=== PATIENT | female | born 1965 | race Hispanic/Latino ===

== ENCOUNTER → 2017-10-03 | Outpatient (CLI) | payer OTHER ==
[~2017-10-03] MED LIST: LISI10TA7 PO
[2017-10-03 13:15] LABS: APPEARANCE,URINE Clear (CLEAR); BILIRUBIN,URINE Negative (NEGATIVE); COLOR,URINE Yellow (YELLOW); GLUCOSE, URINE (UA) Negative (NEGATIVE); KETONES,URINE Negative (NEGATIVE); LEUKOCYTE ESTERASE ,URINE Moderate (NEGATIVE); NITRATE,URINE Negative (NEGATIVE); OCCULT BLOOD,URINE Negative (NEGATIVE); PROTEIN,URINE Negative (NEGATIVE)
[2017-10-03 13:21] LABS: BACTERIA,URINE Few /HPF (None Seen); SQUAMOUS EPITHELIAL CELL,UR Rare /HPF (0-2)
== END | disposition home or self-care (01) ==
LOC: LAB 12:53
PROVIDERS: ATTEND Family Medicine
DX: N39.0 Urinary tract infection, site not specified (principal)
CPT/HCPCS: 81001; 87088

== ENCOUNTER → 2017-10-13 | Outpatient (CLI) | payer OTHER | END | disposition home or self-care (01) | LOC: RAH 09:42 | PROVIDERS: ATTEND Family Medicine | DX: N60.02 Solitary cyst of left breast (principal); N60.01 Solitary cyst of right breast; R92.8 Other abnormal and inconclusive findings on diagnostic imaging of breast | CPT/HCPCS: 76641; 77066 ==

== ENCOUNTER → 2018-07-12 | Outpatient (CLI) | payer OTHER ==
[2018-07-12 10:00] LABS: BASOPHILS % (AUTO) 0.7 % (0.0-5.0); EOSINOPHILS % (AUTO) 0.9 % (0.0-8.0); HEMATOCRIT 45.5 % (36-48); LYMPHOCYTES % (AUTO) 29.4 % (21.0-51.0); MEAN CORPUSCULAR HEMOGLOBIN 31.7 pg (27.0-33.0); MEAN CORPUSCULAR HGB CONC 34.6 g/dL (32.0-36.0); MEAN CORPUSCULAR VOLUME 91.7 fL (79-99); MONOCYTES % (AUTO) 4.9 % (3.0-13.0); NEUTROPHILS % (AUTO) 64.1 % (40.0-77.0); NUCLEATED RED BLOOD CELLS 0.1 % (0.0-0.19); PLATELET COUNT (AUTO) 118 K/uL (130-400); RED BLOOD CELL COUNT(AUTO) 4.97 MIL/uL (4.00-5.50); RED CELL DISTRIBUTION WIDTH 13.5 % (11.0-15.5); WHITE BLOOD COUNT (AUTO) 6.7 K/uL (4.8-10.8)
[2018-07-12 10:09] LABS: HEMOGLOBIN A1C 5.8 % (4.0-6.0)
[2018-07-12 10:19] LABS: ALBUMIN 3.9 g/dL (3.5-5.0); BILIRUBIN,TOTAL 1.3 mg/dL (0.2-1.0); CREATININE 0.8 mg/dL (0.5-1.5); POTASSIUM 4.2 mmol/L (3.5-5.1); THYROID STIMULATING HORMONE 2.38 uIU/mL (0.36-3.74); TOTAL PROTEIN, SERUM 7.2 g/dL (6.0-8.3)
== END | disposition home or self-care (01) ==
LOC: LAB 09:15
PROVIDERS: ATTEND Family Medicine
DX: I10 Essential (primary) hypertension (principal)
CPT/HCPCS: 36415; 80053; 80061; 83036; 84443; 85025

== ENCOUNTER → 2018-09-12 | Outpatient (CLI) | payer OTHER | END | disposition home or self-care (01) | LOC: RAH 11:19 | PROVIDERS: ATTEND Family Medicine | DX: R05 Cough (principal) | CPT/HCPCS: 71046 ==

== ENCOUNTER → 2018-10-17 | Outpatient (CLI) | payer OTHER | END | disposition home or self-care (01) | LOC: RAH 07:39 | PROVIDERS: ATTEND Family Medicine | DX: R92.2 Inconclusive mammogram (principal) | CPT/HCPCS: 77066 ==

== ENCOUNTER → 2018-10-20 | Outpatient (CLI) | payer OTHER | END | disposition home or self-care (01) | LOC: RAH 07:24 | PROVIDERS: ATTEND Family Medicine | DX: K76.0 Fatty (change of) liver, not elsewhere classified (principal); R16.1 Splenomegaly, not elsewhere classified | CPT/HCPCS: 36415; 76700; 83013 ==

== ENCOUNTER 2018-11-07 21:27 | Emergency (ER) | payer OTHER ==
[2018-11-07 22:07] LABS: BASOPHILS % (AUTO) 0.6 % (0.0-5.0); HEMATOCRIT 44.2 % (36-48); LYMPHOCYTES % (AUTO) 30.8 % (21.0-51.0); MEAN CORPUSCULAR HEMOGLOBIN 31.2 pg (27.0-33.0); MEAN CORPUSCULAR HGB CONC 34.3 g/dL (32.0-36.0); MONOCYTES % (AUTO) 5.3 % (3.0-13.0); NEUTROPHILS % (AUTO) 62.3 % (40.0-77.0); PLATELET COUNT (AUTO) 138 K/uL (130-400); RED BLOOD CELL COUNT(AUTO) 4.85 MIL/uL (4.00-5.50); RED CELL DISTRIBUTION WIDTH 13.2 % (11.0-15.5); WHITE BLOOD COUNT (AUTO) 7.4 K/uL (4.8-10.8)
[2018-11-07 22:19] LABS: APPEARANCE,URINE Clear (CLEAR); BILIRUBIN,URINE Negative (NEGATIVE); COLOR,URINE Yellow (YELLOW); GLUCOSE, URINE (UA) Negative (NEGATIVE); KETONES,URINE Negative (NEGATIVE); LEUKOCYTE ESTERASE ,URINE Trace (NEGATIVE); NITRATE,URINE Negative (NEGATIVE); OCCULT BLOOD,URINE Negative (NEGATIVE); PROTEIN,URINE Negative (NEGATIVE)
[2018-11-07 22:20] LABS: CREATININE 0.9 mg/dL (0.5-1.5); POTASSIUM 3.7 mmol/L (3.5-5.1)
[2018-11-07 22:25] LABS: BILIRUBIN,TOTAL 0.8 mg/dL (0.2-1.0); TOTAL PROTEIN, SERUM 7.2 g/dL (6.0-8.3)
[2018-11-07 22:30] LABS: BACTERIA,URINE Few /HPF (None Seen); RBC,URINE 0-1 /HPF (0-1); SQUAMOUS EPITHELIAL CELL,UR Few /HPF (0-2)
[2018-11-07] MEDS ORDERED: KETOROLAC TROMETHAMINE 30MG/ML ONE (23:24)
[2018-11-07] MEDS ORDERED: ONDANSETRON HCL 4 MG/2 ML VIAL ONE (23:24)
== END 2018-11-07 23:53 | disposition home or self-care (01) ==
LOC: EDH 21:27
DX: R10.11 Right upper quadrant pain (principal); R10.13 Epigastric pain; I10 Essential (primary) hypertension; Z90.710 Acquired absence of both cervix and uterus
CPT/HCPCS: 36415; 71045; 76705; 80053; 81001; 82150; 83690; 84484; 85025; 93005; 96374; 96375; 99285; J1885; J2405

== ENCOUNTER → 2018-12-01 | Outpatient (CLI) | payer OTHER | END | disposition home or self-care (01) | LOC: RAH 10:22 | PROVIDERS: ATTEND Internal Medicine Gastroenterology | DX: R93.3 Abnormal findings on diagnostic imaging of other parts of digestive tract (principal); R14.0 Abdominal distension (gaseous); R10.9 Unspecified abdominal pain | CPT/HCPCS: 78226; A9537 ==

== ENCOUNTER 2019-05-09 12:51 | Emergency (ER) | payer OTHER ==
[2019-05-09] MEDS ORDERED: IPRATROPIUM/ALBUTEROL SULFATE 3 ML SOLUTION IH ONE (13:41)
[2019-05-09] MEDS ORDERED: PREDNISONE 20 MG TABLET ONE (13:45)
[2019-05-09] MEDS ORDERED: ONDANSETRON ODT 4 MG TAB ONE (13:45)
[2019-05-09 14:46] LABS: RAPID GROUP A STREP NEGATIVE (NEGATIVE)
== END 2019-05-09 15:09 | disposition home or self-care (01) ==
LOC: EDH 12:51
DX: B34.9 Viral infection, unspecified (principal); I10 Essential (primary) hypertension; Z90.49 Acquired absence of other specified parts of digestive tract; Z90.710 Acquired absence of both cervix and uterus
CPT/HCPCS: 71046; 87804; 87880; 94640

== ENCOUNTER 2019-06-27 13:00 | Observation (INO) | payer OTHER ==
[~2019-06-27] VITALS: Ht 167.6 cm; Wt 79.4 kg
[2019-06-27 10:36] LABS: BASOPHILS % (AUTO) 0.4 % (0.0-5.0); EOSINOPHILS % (AUTO) 1.3 % (0.0-8.0); HEMATOCRIT 45.8 % (36-48); LYMPHOCYTES % (AUTO) 29.8 % (21.0-51.0); MEAN CORPUSCULAR HEMOGLOBIN 30.2 pg (27.0-33.0); MEAN CORPUSCULAR HGB CONC 33.8 g/dL (32.0-36.0); MEAN CORPUSCULAR VOLUME 89.1 fL (79-99); MONOCYTES % (AUTO) 4.2 % (3.0-13.0); PLATELET COUNT (AUTO) 147 K/uL (130-400); RED BLOOD CELL COUNT(AUTO) 5.14 MIL/uL (4.00-5.50); RED CELL DISTRIBUTION WIDTH 12.9 % (11.0-15.5); WHITE BLOOD COUNT (AUTO) 6.9 K/uL (4.8-10.8)
[2019-06-27 10:37] VITALS: BP 138/73
[~2019-06-27 13:00] MED LIST changes: +GABA-531 PO
[2019-06-28] MEDS ORDERED: CALDOLOR 800MG+NS 250ML 250 ML IV SCH (11:45)
[2019-06-29] VITALS (21 sets, daily range): BP systolic 110–129; BP diastolic 57–82
[2019-06-29] MEDS ORDERED: LACTATED RINGERS 1000ML 1,000 ML IV ONE (09:09)
[2019-06-29] MEDS: CEFAZOLIN SODIUM 1 GM VIAL IVP SCH ×2 (09:30→11:30)
[2019-06-29] MEDS ORDERED: DURAMORPH PF1 MG/ML 10ML AMP IV ONE (10:56)
[2019-06-29] MEDS ORDERED: FENTANYL CITRATE PF 50 MCG/1 ML 2ML VIAL ONE (10:58)
[2019-06-29] MEDS ORDERED: LIDOCAINE PF 2% 5ML ABBOJECT ONE (10:58)
[2019-06-29] MEDS ORDERED: ROCURONIUM 10MG/1ML SYR 10 MG/ML ML ONE (11:00)
[2019-06-29] MEDS ORDERED: PROPOFOL 10 MG/ML 20ML VIAL IV ONE (11:00)
[2019-06-29] MEDS ORDERED: MIDAZOLAM HCL 1 MG/ML 2ML VIAL ONE (11:00)
[2019-06-29] MEDS ORDERED: ONDANSETRON HCL 4 MG/2 ML VIAL ONE (11:00)
[2019-06-29] MEDS ORDERED: ESTROGENS,CONJUGATED 0.625 MG/GM 42.5 GM VAG CRM VG ONE (11:59)
[2019-06-29] MEDS ORDERED: DEXAMETHASONE SOD PHOSPHATE 4 MG/ML 1ML VIAL ONE (12:25)
[2019-06-29] MEDS ORDERED: GLYCOPYRROLATE 1 MG/5 ML SYRINGE ONE (12:25)
[2019-06-29] MEDS ORDERED: NEOSTIGMINE 5MG/5ML SYR IV ONE (12:26)
[2019-06-29] MEDS ORDERED: PROMETHAZINE HCL 25 MG/ML 1ML AMPULE IM PRN ×2 (12:45)
[2019-06-29] MEDS ORDERED: DIPH,PERTUSS(ACELL),TET VAC/PF 0.5 ML VIAL IM SCH (12:45)
[2019-06-29] MEDS ORDERED: ACETAMINOPHEN-CODEINE 300/30MG TAB PO PRN ×2 (12:45)
[2019-06-29] MEDS ORDERED: HYDROCODONE/ACETAMINOPHEN 5/325 MG TAB PO PRN (12:45)
[2019-06-29] MEDS ORDERED: DOCUSATE SODIUM 100 MG CAP PO PRN ×2 (12:45)
[2019-06-29] MEDS ORDERED: BISACODYL 10 MG SUPP.RECT RC PRN ×2 (12:45)
[2019-06-29] MEDS ORDERED: SIMETHICONE 80 MG TAB.CHEW PO PRN ×2 (12:45)
[2019-06-29] MEDS ORDERED: MEPERIDINE-PF 75 MG/ML SYG IM PRN (12:45)
[2019-06-29] MEDS ORDERED: IBUPROFEN 800 MG TAB PO PRN (12:45)
--- NOTE | 2019-06-29 13:55 | NUR ---
PATIENT ARRIVED TO UNIT VIA BED FROM PACU. NO PAIN REPORTED. VAGINAL PACKING IN PLACE. DORMAN CATHETER DRAINING TO BEDSIDE. CALL LIGHT LEFT IN REACH. ADVISED PATIENT TO CALL WITH ANY NEEDS OR CONCERNS.
[2019-06-29] MEDS: ONDANSETRON HCL 4 MG/2 ML VIAL IVP PRN ×2 (14:28→20:11)
--- NOTE | 2019-06-29 16:30 | NUR ---
EMESIS X1 100ML IN EMESIS BAG.
[2019-06-29] MEDS: DEXTROSE 5 %-0.45 % NACL 1,000 ML IV PRN ×3 (16:42→22:01)
[2019-06-29] MEDS: CALDOLOR 800MG+NS 250ML 250 ML IV SCH (20:11)
--- NOTE | 2019-06-29 20:11 | NUR ---
PT. MEDICATED FOR C/O NAUSEA, NO EMESIS NOTED.
--- NOTE | 2019-06-29 21:00 | NUR ---
RESTING QUIETLY, DENIED FURTHER NAUSEA AND NO EMESIS NOTED.
[2019-06-30 03:45] VITALS: BP 100/55
[2019-06-30] MEDS: CALDOLOR 800MG+NS 250ML 250 ML IV SCH (04:22)
--- NOTE | 2019-06-30 06:07 | NUR ---
VAGINAL PACK REMOVED, RICKY CARE DONE. NO ACTIVE VAGINAL BLEEDING NOTED. DORMAN CATH NOT REMOVED BECAUSE PT INSISTED THAT DR GOODMAN TOLD HER THAT SHE WILL GO [place] WITH DORMAN CATH AND WILL REMAIN FOR 4-5 DAYS. WILL DOUBLE CHECK WITH MD IN THE MORNING.
[2019-06-30 06:27] LABS: HEMATOCRIT 36.2 % (36-48); MEAN CORPUSCULAR VOLUME 88.3 fL (79-99); PLATELET COUNT (AUTO) 129 K/uL (130-400); RED CELL DISTRIBUTION WIDTH 12.2 % (11.0-15.5); WHITE BLOOD COUNT (AUTO) 10.4 K/uL (4.8-10.8)
[2019-06-30] MEDS: DEXTROSE 5 %-0.45 % NACL 1,000 ML IV PRN (06:33)
[2019-06-30 07:22] VITALS: BP 100/63
[2019-06-30] MEDS ORDERED: ESTRADIOL 0.1 MG/24 HR PATCH (WEEKLY) TD SCH (09:00)
[2019-06-30] MEDS ORDERED: BISACODYL 10 MG SUPP.RECT RC SCH (10:30)
[2019-06-30 11:26] VITALS: BP 124/70
[2019-06-30] MEDS ORDERED: IBUPROFEN 800 MG TAB PO SCH (12:45)
--- NOTE | 2019-06-30 13:42 | NUR ---
DISCHARGE INSTRUCTIONS/INFORMATION GIVEN TO PATIENT. TEACH BACK METHOD USED TO EDUCATE PATIENT ON DORMAN CATHETER CARE, S/S TO MONITOR FOR , WHEN TO CALL MD, AND F/U APPOINTMENTS. PATIENT WILL BE GOING HOME WITH DORMAN CATHETER AND WILL BE REMOVED AT DR. BRAVO'S OFFICE. PIV REMOVED. TIP WAS INTACT. ALL BELONGINGS WERE PACKED AND TAKEN HOME. PATIENT WAS SAFELY WHEELED TO HER PRIVATE VEHICLE BY PADMINI ALONSO. PATIENT WAS ACCOMPANIED BY HER FAMILY.
[2019-07-06] MEDS ORDERED: ESTRADIOL 0.1 MG/24 HR PATCH (WEEKLY) TD SCH (09:00)
[2019-10-15] MEDS ORDERED: ALBU8.5H8 IH (14:26)
[2019-12-07] MEDS ORDERED: GABA-529 PO (12:30)
== END 2019-06-30 13:30 | disposition home or self-care (01) ==
LOC: DAHIP 06-29 07:10 → EDSTATUS 06-29 13:00 → WSH 06-29 13:50
PROVIDERS: ADMIT Obstetrics & Gynecology; ATTEND Obstetrics & Gynecology
DX: N81.10 Cystocele, unspecified (principal); N81.6 Rectocele; N39.3 Stress incontinence (female) (male); I10 Essential (primary) hypertension; Z79.899 Other long term (current) drug therapy
CPT/HCPCS: 36415 ×2; 57220; 57260; 85025; 85027; 86850; 86900; 86901; 96365; 96366; 96375; 96376; A4213; A4215; A4221; A4222; A4223; A4344; A4351; A4510; A4600; A4606; A4663; A6260; G0378 ×28; J0690; J1100; J1741 ×3; J2001; J2250; J2274; J2405 ×3; J2704; J2710; J3010; J3490; J7030; J7120; 90715

== ENCOUNTER → 2019-09-14 | Outpatient (CLI) | payer OTHER | END | disposition home or self-care (01) | LOC: SHCH 09:37 | PROVIDERS: ATTEND Internal Medicine Cardiovascular Disease | DX: R07.9 Chest pain, unspecified (principal) | CPT/HCPCS: 93306 ==

== ENCOUNTER → 2019-09-18 | Outpatient (CLI) | payer OTHER ==
[~2019-09-18] MED LIST changes: +REGADENOSON 0.4 MG/5 ML PF SYG IVP SCH
== END | disposition home or self-care (01) ==
LOC: SHCH 08:04
PROVIDERS: ATTEND Internal Medicine Cardiovascular Disease
DX: R00.2 Palpitations (principal); R07.9 Chest pain, unspecified
CPT/HCPCS: 78452; 93017; 96374; A9500 ×2; J2785

== ENCOUNTER 2019-10-02 22:22 | Inpatient (IN) | payer OTHER ==
[~2019-10-02] VITALS: Ht 167.6 cm; Wt 83.5 kg
[~2019-10-02 22:22] MED LIST changes: -REGADENOSON 0.4 MG/5 ML PF SYG IVP SCH
[2019-10-02 22:52] LABS: BASOPHILS % (AUTO) 0.4 % (0.0-5.0); EOSINOPHILS % (AUTO) 1.4 % (0.0-8.0); HEMATOCRIT 42.9 % (36-48); LYMPHOCYTES % (AUTO) 32.1 % (21.0-51.0); MEAN CORPUSCULAR HEMOGLOBIN 30.3 pg (27.0-33.0); MEAN CORPUSCULAR HGB CONC 35.2 g/dL (32.0-36.0); MEAN CORPUSCULAR VOLUME 86.1 fL (79-99); MONOCYTES % (AUTO) 4.8 % (3.0-13.0); NEUTROPHILS % (AUTO) 60.9 % (40.0-77.0); PLATELET COUNT (AUTO) 147 K/uL (130-400); RED BLOOD CELL COUNT(AUTO) 4.98 MIL/uL (4.00-5.50); RED CELL DISTRIBUTION WIDTH 12.8 % (11.0-15.5); WHITE BLOOD COUNT (AUTO) 7.9 K/uL (4.8-10.8)
[2019-10-02 22:55] LABS: APPEARANCE,URINE Clear (CLEAR); BILIRUBIN,URINE Negative (NEGATIVE); COLOR,URINE Yellow (YELLOW); GLUCOSE, URINE (UA) Negative (NEGATIVE); KETONES,URINE Negative (NEGATIVE); LEUKOCYTE ESTERASE ,URINE Moderate (NEGATIVE); NITRATE,URINE Negative (NEGATIVE); OCCULT BLOOD,URINE Negative (NEGATIVE); PH,URINE 5.5 (5.0-8.0); PROTEIN,URINE Negative (NEGATIVE)
[2019-10-02] MEDS ORDERED: ONDANSETRON HCL 4 MG/2 ML VIAL ONE (22:55)
[2019-10-02] MEDS ORDERED: MORPHINE SULFATE 4 MG/1ML SYG ONE (22:55)
[2019-10-02 23:05] LABS: CREATININE 0.8 mg/dL (0.5-1.5); POTASSIUM 3.6 mmol/L (3.5-5.1)
[2019-10-02 23:08] LABS: BACTERIA,URINE Moderate /HPF (None Seen); MUCUS,URINE Moderate LPF (None Seen); RBC,URINE 0-1 /HPF (0-1); SQUAMOUS EPITHELIAL CELL,UR Many /HPF (0-2)
[2019-10-02 23:10] LABS: ALBUMIN 4.1 g/dL (3.5-5.0); BILIRUBIN,TOTAL 0.8 mg/dL (0.2-1.0); TOTAL PROTEIN, SERUM 7.3 g/dL (6.0-8.3)
[2019-10-03] MEDS ORDERED: IOHEXOL-350 75 ML VIAL IV ONE (01:07)
[2019-10-03] MEDS ORDERED: SODIUM CHLORIDE 0.9% 1000ML 1,000 ML IV SCH (01:28)
[2019-10-03] MEDS ORDERED: ACETAMINOPHEN 325 MG TAB PO PRN ×2 (01:30)
[2019-10-03] MEDS ORDERED: HYDRALAZINE HCL 20 MG/ML VIAL IV PRN (01:30)
[2019-10-03] MEDS ORDERED: ONDANSETRON HCL 4 MG/2 ML VIAL IV PRN (01:30)
[2019-10-03] MEDS ORDERED: MORPHINE SULFATE 2 MG/ML 1ML SYG IV PRN (01:30)
[2019-10-03] MEDS ORDERED: LACTULOSE 20 GM/30 ML UDCUP PO PRN (01:30)
[2019-10-03] MEDS ORDERED: CEFTRIAXONE SODIUM 1 GM IVP SCH (02:00)
[2019-10-03] MEDS ORDERED: SODIUM CHLORIDE 0.9% 1000ML 1,000 ML IV ONE (04:30)
[2019-10-03] MEDS ORDERED: CEFTRIAXONE SODIUM 1 GM ONE (04:31)
[2019-10-03 04:57] LABS: BASOPHILS % (AUTO) 0.3 % (0.0-5.0); EOSINOPHILS % (AUTO) 1.5 % (0.0-8.0); HEMATOCRIT 38.7 % (36-48); LYMPHOCYTES % (AUTO) 34.3 % (21.0-51.0); MEAN CORPUSCULAR HEMOGLOBIN 30.4 pg (27.0-33.0); MEAN CORPUSCULAR HGB CONC 35.1 g/dL (32.0-36.0); MEAN CORPUSCULAR VOLUME 86.6 fL (79-99); MONOCYTES % (AUTO) 4.5 % (3.0-13.0); NEUTROPHILS % (AUTO) 59.4 % (40.0-77.0); PLATELET COUNT (AUTO) 121 K/uL (130-400); RED BLOOD CELL COUNT(AUTO) 4.47 MIL/uL (4.00-5.50); RED CELL DISTRIBUTION WIDTH 12.6 % (11.0-15.5)
[2019-10-03 05:08] LABS: HEMOGLOBIN A1C 6.9 % (4.0-6.0)
[2019-10-03 05:18] LABS: CREATININE 0.7 mg/dL (0.5-1.5); POTASSIUM 3.5 mmol/L (3.5-5.1)
[2019-10-03] MEDS ORDERED: INSULIN HUMULIN R 100 UNIT/ML 3ML SQ SCH (06:00)
[2019-10-03] MEDS ORDERED: FAMOTIDINE/PF 20 MG/2 ML VIAL IV SCH (09:00)
[2019-10-03] MEDS ORDERED: ENOXAPARIN SODIUM 40 MG/0.4 ML SYRINGE SQ SCH (09:00)
[2019-10-03] MEDS ORDERED: LEVO500T2 PO (09:07)
[2019-10-03] MEDS ORDERED: METR500T PO (09:07)
[2019-10-03] MEDS ORDERED: ONDA4TAB4 PO (09:07)
[2019-10-03] MEDS ORDERED: LEVOFLOXACIN 500 MG TABLET PO SCH (09:15)
[2019-10-03] MEDS ORDERED: METRONIDAZOLE 500 MG TABLET PO SCH (09:15)
[2019-10-03] MEDS ORDERED: LEVOFLOXACIN 500 MG TABLET ONE (09:47)
[2019-10-03] MEDS ORDERED: METRONIDAZOLE 500 MG TABLET ONE (09:47)
[2019-10-05 13:53] LABS: HEPATITIS A ANTIBODY IGM Negative (Negative); HEPATITIS B CORE IGM Negative (Negative); HEPATITIS Bs ANTIGEN SCREEN P Negative (Negative)
[2019-10-15] MEDS ORDERED: ALBU8.5H8 IH (14:26)
[2019-12-07] MEDS ORDERED: GABA-529 PO (12:30)
== END 2019-10-03 11:53 | disposition home or self-care (01) | DRG 392 ==
LOC: EDH 22:22 → EDHIP 10-03 01:28
PROVIDERS: ADMIT Internal Medicine; ATTEND Internal Medicine
DX: K29.80 Duodenitis without bleeding (principal); N39.0 Urinary tract infection, site not specified; E11.9 Type 2 diabetes mellitus without complications; I10 Essential (primary) hypertension; K76.0 Fatty (change of) liver, not elsewhere classified; Z82.0 Family history of epilepsy and other diseases of the nervous system; Z82.3 Family history of stroke; Z82.49 Family history of ischemic heart disease and other diseases of the circulatory system; Z82.5 Family history of asthma and other chronic lower respiratory diseases; Z83.3 Family history of diabetes mellitus; Z90.710 Acquired absence of both cervix and uterus
CPT/HCPCS: 36415; 74177; 76705; 80048; 80053; 80061; 80074; 81001; 82550; 83036; 83690; 84478; 84484; 85025; 87088; 93005; G0378; J0696; J2270; J2405; J7030; Q9967

== ENCOUNTER 2019-10-16 07:17 | Day surgery (SDC) | payer OTHER ==
[2019-10-11 14:32] LABS: BASOPHILS % (AUTO) 0.4 % (0.0-5.0); EOSINOPHILS % (AUTO) 1.1 % (0.0-8.0); HEMATOCRIT 48.1 % (36-48); LYMPHOCYTES % (AUTO) 35.4 % (21.0-51.0); MEAN CORPUSCULAR HEMOGLOBIN 30.7 pg (27.0-33.0); MEAN CORPUSCULAR HGB CONC 34.3 g/dL (32.0-36.0); MEAN CORPUSCULAR VOLUME 89.6 fL (79-99); MONOCYTES % (AUTO) 5.7 % (3.0-13.0); NEUTROPHILS % (AUTO) 57.1 % (40.0-77.0); PLATELET COUNT (AUTO) 143 K/uL (130-400); RED BLOOD CELL COUNT(AUTO) 5.37 MIL/uL (4.00-5.50); WHITE BLOOD COUNT (AUTO) 7.3 K/uL (4.8-10.8)
[2019-10-11 14:43] LABS: INR 0.98 (0.85-1.15); PROTHROMBIN TIME 10.6 SEC (9.6-11.6)
[2019-10-11 14:54] LABS: ALBUMIN 4.3 g/dL (3.5-5.0); BILIRUBIN,TOTAL 0.9 mg/dL (0.2-1.0); CREATININE 0.8 mg/dL (0.5-1.5); POTASSIUM 3.8 mmol/L (3.5-5.1); TOTAL PROTEIN, SERUM 8.1 g/dL (6.0-8.3)
[2019-10-11 15:04] LABS: % IRON SATURATION 40.8 % (22-44)
[2019-10-16] VITALS (7 sets, daily range): BP systolic 105–139; BP diastolic 60–83
[~2019-10-16 07:17] MED LIST changes: +ALBU8.5H8 IH; +SODIUM CHLORIDE 0.9% 1000ML 1,000 ML IV ONE
[2019-10-16] MEDS ORDERED: LOSA50TA64 PO (08:15)
[2019-10-16] MEDS ORDERED: MIDAZOLAM HCL 1 MG/ML 2ML VIAL ONE (09:38)
[2019-10-16] MEDS ORDERED: PROPOFOL 10 MG/ML 20ML VIAL IV ONE (09:38)
--- NOTE | 2019-10-16 10:27 | NUR ---
dc pt dc home via wc,no distress noted, pt denied any pain or discomforts. pt accompanied by spouse.
[2019-10-21 11:53] LABS: ALPHA-1-ANTITRYPSIN QNS mg/dL (90-200)
[2019-12-07] MEDS ORDERED: GABA-529 PO (12:30)
== END 2019-10-16 10:27 | disposition home or self-care (01) ==
LOC: ENDO 07:17 → DAH 07:17 → ENDO 10:27
PROVIDERS: ATTEND Internal Medicine
DX: R93.3 Abnormal findings on diagnostic imaging of other parts of digestive tract (principal); K29.70 Gastritis, unspecified, without bleeding; K22.8 Other specified diseases of esophagus; R10.13 Epigastric pain; K76.9 Liver disease, unspecified
CPT/HCPCS: 36415; 43239; 80053; 82103; 82104; 82105; 82150; 82172; 82247; 82390; 82728; 82784; 82977; 83010; 83540; 83550; 83690; 83883; 84460; 85025; 85610; 86038; 86235; 86255; 86704; 86706; 86708; 87635; A4215; A4221; A4222; A4223; A4606; A4620; A4657; A4663; J2250; J2704; J7030; 86215

== ENCOUNTER → 2019-12-07 | Outpatient (CLI) | payer OTHER ==
[~2019-12-07] MED LIST changes: +GABA-529 PO; -LISI10TA7 PO; +LOSA50TA64 PO; -SODIUM CHLORIDE 0.9% 1000ML 1,000 ML IV ONE
== END | disposition home or self-care (01) ==
LOC: RAH 10:00
PROVIDERS: ATTEND Psychiatry & Neurology Neurology
DX: G35 Multiple sclerosis (principal); Q28.2 Arteriovenous malformation of cerebral vessels
CPT/HCPCS: 70544; 70551

== ENCOUNTER 2019-12-10 06:07 | Day surgery (SDC) | payer OTHER ==
[~2019-12-10] VITALS: Ht 167.6 cm; Wt 77.6 kg
[2019-12-10] VITALS (8 sets, daily range): BP systolic 95–136; BP diastolic 53–87
[2019-12-10 06:47] LABS: BASOPHILS % (AUTO) 0.3 % (0.0-5.0); EOSINOPHILS % (AUTO) 2.3 % (0.0-8.0); HEMATOCRIT 43.6 % (36-48); MEAN CORPUSCULAR HEMOGLOBIN 30.8 pg (27.0-33.0); MEAN CORPUSCULAR HGB CONC 35.1 g/dL (32.0-36.0); MEAN CORPUSCULAR VOLUME 87.7 fL (79-99); NEUTROPHILS % (AUTO) 62.2 % (40.0-77.0); PLATELET COUNT (AUTO) 146 K/uL (130-400); RED BLOOD CELL COUNT(AUTO) 4.97 MIL/uL (4.00-5.50); RED CELL DISTRIBUTION WIDTH 12.3 % (11.0-15.5); WHITE BLOOD COUNT (AUTO) 6.1 K/uL (4.8-10.8)
[2019-12-10] MEDS ORDERED: SIMETHICONE 40 MG/0.6 ML ML ONE (06:50)
[2019-12-10] MEDS ORDERED: PROPOFOL 10 MG/ML 20ML VIAL IV ONE (06:51)
[2019-12-10] MEDS ORDERED: LIDOCAINE HCL-MPF 2% 5ML VIAL ONE (06:51)
[2019-12-10 06:56] LABS: CREATININE 0.8 mg/dL (0.5-1.5); POTASSIUM 3.5 mmol/L (3.5-5.1)
[2019-12-10 06:59] LABS: INR 0.99 (0.85-1.15); PROTHROMBIN TIME 10.7 SEC (9.6-11.6)
[2019-12-10 07:00] LABS: ALBUMIN 3.9 g/dL (3.5-5.0); BILIRUBIN,TOTAL 1.3 mg/dL (0.2-1.0); TOTAL PROTEIN, SERUM 7.6 g/dL (6.0-8.3)
[2019-12-10] MEDS ORDERED: SODIUM CHLORIDE 0.9% 1000ML 1,000 ML IV ONE (07:02)
== END 2019-12-10 08:10 | disposition home or self-care (01) ==
LOC: ENDO 06:07 → DAH 06:07 → ENDO 08:10
PROVIDERS: ATTEND Internal Medicine Gastroenterology
DX: K59.04 Chronic idiopathic constipation (principal); K85.00 Idiopathic acute pancreatitis without necrosis or infection; K29.50 Unspecified chronic gastritis without bleeding; K76.0 Fatty (change of) liver, not elsewhere classified; I10 Essential (primary) hypertension; J45.909 Unspecified asthma, uncomplicated; K21.9 Gastro-esophageal reflux disease without esophagitis; Z79.01 Long term (current) use of anticoagulants; Z88.2 Allergy status to sulfonamides; Z88.8 Allergy status to other drugs, medicaments and biological substances; Z79.899 Other long term (current) drug therapy; Z90.710 Acquired absence of both cervix and uterus; Z87.19 Personal history of other diseases of the digestive system; Z11.59 Encounter for screening for other viral diseases
CPT/HCPCS: 36415; 45378; 80053; 82150; 83690; 85025; 85610; A4215; A4221; A4222; A4223; A4606; A4620; A4657; A4663; C9803; J2704; J3490; J7030; U0003; 96365; G0121

== ENCOUNTER → 2020-01-09 | Outpatient (CLI) | payer OTHER ==
[2020-01-09 13:08] LABS: THYROID STIMULATING HORMONE 2.42 uIU/mL (0.36-3.74)
[2020-01-09 13:49] LABS: T4 (THYROXINE) 14.3 ug/dL (4.7-13.3)
== END | disposition home or self-care (01) ==
LOC: LAB 11:02
PROVIDERS: ATTEND Psychiatry & Neurology Neurology
DX: G35 Multiple sclerosis (principal); Q28.2 Arteriovenous malformation of cerebral vessels
CPT/HCPCS: 36415; 82607; 84436; 84443; 86592

== ENCOUNTER 2020-02-05 20:49 | Inpatient (IN) | payer OTHER ==
[~2020-02-05] VITALS: Ht 167.6 cm; Wt 75.3 kg
[2020-02-05 21:16] LABS: BASOPHILS % (AUTO) 0.5 % (0.0-5.0); EOSINOPHILS % (AUTO) 0.8 % (0.0-8.0); HEMATOCRIT 47.6 % (36-48); LYMPHOCYTES % (AUTO) 21.9 % (21.0-51.0); MEAN CORPUSCULAR HGB CONC 35.5 g/dL (32.0-36.0); MEAN CORPUSCULAR VOLUME 87.3 fL (79-99); MONOCYTES % (AUTO) 4.8 % (3.0-13.0); NEUTROPHILS % (AUTO) 71.8 % (40.0-77.0); PLATELET COUNT (AUTO) 162 K/uL (130-400); RED BLOOD CELL COUNT(AUTO) 5.45 MIL/uL (4.00-5.50); RED CELL DISTRIBUTION WIDTH 12.9 % (11.0-15.5); WHITE BLOOD COUNT (AUTO) 8.4 K/uL (4.8-10.8)
[2020-02-05 21:28] LABS: POTASSIUM 3.7 mmol/L (3.5-5.1)
[2020-02-05 21:34] LABS: ALBUMIN 4.5 g/dL (3.5-5.0); BILIRUBIN,TOTAL 2.2 mg/dL (0.2-1.0); TOTAL PROTEIN, SERUM 8.3 g/dL (6.0-8.3)
[2020-02-05] MEDS ORDERED: ONDANSETRON HCL 4 MG/2 ML VIAL ONE (21:36)
[2020-02-05] MEDS ORDERED: HYDROMORPHONE HCL 0.5 MG/0.5 ML ML ONE (21:36)
[2020-02-05 22:45] LABS: APPEARANCE,URINE Clear (CLEAR); BILIRUBIN,URINE Small (NEGATIVE); COLOR,URINE Dark Yellow (YELLOW); GLUCOSE, URINE (UA) Negative (NEGATIVE); KETONES,URINE Trace mg/dL (NEGATIVE); LEUKOCYTE ESTERASE ,URINE Negative (NEGATIVE); NITRATE,URINE Negative (NEGATIVE); OCCULT BLOOD,URINE Negative (NEGATIVE); PROTEIN,URINE Negative (NEGATIVE)
[2020-02-05] MEDS ORDERED: LACTULOSE 20 GM/30 ML UDCUP PO PRN (23:30)
[2020-02-05] MEDS ORDERED: SODIUM CHLORIDE 0.9% 1000ML 1,000 ML IV SCH (23:30)
[2020-02-05] MEDS ORDERED: HYDROMORPHONE 1 MG/1 ML AMP IV PRN (23:30)
[2020-02-05] MEDS ORDERED: ONDANSETRON HCL 4 MG/2 ML VIAL IV PRN (23:30)
[2020-02-05] MEDS ORDERED: HYDRALAZINE HCL 20 MG/ML VIAL IV PRN (23:30)
[2020-02-05] MEDS ORDERED: ACETAMINOPHEN 325 MG TAB PO PRN ×2 (23:30)
[2020-02-06] MEDS ORDERED: HYDROMORPHONE HCL 0.5 MG/0.5 ML ML ONE ×2 (02:10→09:06)
[2020-02-06 04:48] LABS: BASOPHILS % (AUTO) 0.4 % (0.0-5.0); LYMPHOCYTES % (AUTO) 27.9 % (21.0-51.0); MEAN CORPUSCULAR HEMOGLOBIN 30.7 pg (27.0-33.0); MEAN CORPUSCULAR VOLUME 87.7 fL (79-99); MONOCYTES % (AUTO) 5.1 % (3.0-13.0); NEUTROPHILS % (AUTO) 65.4 % (40.0-77.0); PLATELET COUNT (AUTO) 129 K/uL (130-400); RED BLOOD CELL COUNT(AUTO) 4.79 MIL/uL (4.00-5.50); RED CELL DISTRIBUTION WIDTH 12.6 % (11.0-15.5); WHITE BLOOD COUNT (AUTO) 5.1 K/uL (4.8-10.8)
[2020-02-06] MEDS ORDERED: ONDANSETRON HCL 4 MG/2 ML VIAL ONE ×2 (05:02→09:05)
[2020-02-06 05:13] LABS: CREATININE 0.9 mg/dL (0.5-1.5); POTASSIUM 3.8 mmol/L (3.5-5.1)
[2020-02-06] MEDS ORDERED: FAMOTIDINE/PF 20 MG/2 ML VIAL IV ONE (08:31)
[2020-02-06] MEDS: FAMOTIDINE/PF 20 MG/2 ML VIAL IV SCH ×2 (09:00→20:15)
[2020-02-06] MEDS ORDERED: SODIUM CHLORIDE 0.9% 1000ML 1,000 ML IV ONE (09:06)
[2020-02-06 10:35] VITALS: BP 134/85
[2020-02-06] MEDS: ZOSYN 3.375GM+NS 50ML 50 ML IV SCH ×2 (11:58→20:01)
[2020-02-06] MEDS: LACTATED RINGERS 1000ML 1,000 ML IV SCH ×3 (11:58→20:34)
[2020-02-06] MEDS: KETOROLAC TROMETHAMINE 15MG/ML IV PRN ×2 (12:01→20:16)
[2020-02-06 12:30] LABS: ALBUMIN 3.7 g/dL (3.5-5.0); BILIRUBIN,DIRECT 1.3 mg/dL (0.0-0.3); BILIRUBIN,TOTAL 2.2 mg/dL (0.2-1.0); TOTAL PROTEIN, SERUM 6.9 g/dL (6.0-8.3)
--- NOTE | 2020-02-06 13:32 | NUR ---
PENDING IA, TRANSFERRED TO [facility] RECENT RE-ADMIT, LAST ADMIT WAS INDEPENDENT, NO DME, LIVES WITH [facility], WHO WILL PROVIDE TRANSPORT .. CM/SW TO [facility] FOR ANY UPDATES/CHANGES
[2020-02-06 16:12] VITALS: BP 131/76
[2020-02-06] MEDS ORDERED: GADODIAMIDE 10 MMOL/20 ML VIAL IV ONE (18:20)
--- NOTE | 2020-02-06 18:41 | NUR ---
to radiology via wheelchair for m[facility]p Addendum: 02/06/20 at 1843 by VICTOR MANUEL MASTERS RN Amended: Links added.
[2020-02-06 19:37] VITALS: BP 140/80
[2020-02-06] MEDS: GABAPENTIN 300 MG CAPSULE PO SCH (20:16)
[2020-02-06 23:10] VITALS: BP 116/75
[2020-02-07] MEDS: LACTATED RINGERS 1000ML 1,000 ML IV SCH ×9 (01:05→20:18)
[2020-02-07 03:05] VITALS: BP 122/69
[2020-02-07] MEDS: ZOSYN 3.375GM+NS 50ML 50 ML IV SCH ×3 (03:30→18:54)
[2020-02-07 07:19] VITALS: BP 128/77
--- NOTE | 2020-02-07 07:20 | NUR ---
DR DODSON'S # CALLED AT [phone] TO REPORT THE RESULT FOR MRCP, NO ANSWER AT THIS TIME. NASEEM OQUENDO RN NOTIFIED TO FOLLOW UP.
--- NOTE | 2020-02-07 07:45 | NUR ---
DR. WEST GARCIA AND WILL AWAIT CALL TO GIVE REPORT ON [facility] RESULTS.
[2020-02-07 07:54] LABS: BASOPHILS % (AUTO) 0.2 % (0.0-5.0); EOSINOPHILS % (AUTO) 2.5 % (0.0-8.0); HEMATOCRIT 37.3 % (36-48); LYMPHOCYTES % (AUTO) 28.7 % (21.0-51.0); MEAN CORPUSCULAR HEMOGLOBIN 30.8 pg (27.0-33.0); MEAN CORPUSCULAR HGB CONC 34.9 g/dL (32.0-36.0); MEAN CORPUSCULAR VOLUME 88.4 fL (79-99); MONOCYTES % (AUTO) 5.8 % (3.0-13.0); NEUTROPHILS % (AUTO) 62.6 % (40.0-77.0); PLATELET COUNT (AUTO) 96 K/uL (130-400); RED BLOOD CELL COUNT(AUTO) 4.22 MIL/uL (4.00-5.50); RED CELL DISTRIBUTION WIDTH 12.7 % (11.0-15.5); WHITE BLOOD COUNT (AUTO) 4.9 K/uL (4.8-10.8)
[2020-02-07 08:15] LABS: BILIRUBIN,TOTAL 1.8 mg/dL (0.2-1.0); CREATININE 0.8 mg/dL (0.5-1.5); MAGNESIUM 1.7 mg/dL (1.80-2.40); POTASSIUM 3.6 mmol/L (3.5-5.1); TOTAL PROTEIN, SERUM 5.8 g/dL (6.0-8.3)
[2020-02-07] MEDS: FAMOTIDINE/PF 20 MG/2 ML VIAL IV SCH ×2 (09:01→21:03)
--- NOTE | 2020-02-07 09:45 | NUR ---
VIVEK ZAMORANO ROUNDED FOR DR. GO AND ORDER FOR CBC; CMP; LIPASE; KEEP PATIENT NPO; AND OBTAIN CONSENT FOR LAPAROSCOPIC CHOLECYSTECTOMY, POSSIBLE OPEN CHOLECYSTECTOMY OBTAINED AND ORDERED. CONSENT TO BE OBTAINED.
--- NOTE | 2020-02-07 09:55 | NUR ---
DR. DODSON RETURNED CALL FROM [facility] THIS A.M. AND WAS GIVEN MRCP RESULTS AND WAS MADE AWARE OF DR. GO POSSIBLY DOING LAP CELINE IN A.M. AND INDICATED HE WAS RELEASING PATIENT FROM HIS CARE.
--- NOTE | 2020-02-07 10:30 | NUR ---
DR. NUNEZ ROUNDED AND NO NEW ORDERS GIVEN AT THIS TIME. JUST MADE AWARE THAT HE WOULD WAIT ON DR. GO TO CONTINUE WITH PLAN TO DO LAP CELINE IN A.M.
[2020-02-07 11:25] VITALS: BP 150/89
[2020-02-07] MEDS: KETOROLAC TROMETHAMINE 15MG/ML IV PRN (11:52)
[2020-02-07] MEDS: GABAPENTIN 100 MG CAPSULE PO SCH (12:12)
[2020-02-07] MEDS: LOSARTAN 50 MG TABLET PO SCH (12:12)
[2020-02-07 15:22] VITALS: BP 141/81
--- NOTE | 2020-02-07 17:00 | NUR ---
NEW ORDER RECEIVED FOR CHANGE IN FLUID RATE OF LR TO 150CC/HR. IV PUMP RATE CHANGED.
--- NOTE | 2020-02-07 19:20 | NUR ---
BEDSIDE REPORT GIVEN TO LEE SHARMA AND PATIENT CARE TRANSFERED AT THIS TIME. PATIENT STABLE AND ZOSYN HUNG INFUSING WELL.
[2020-02-07 19:31] VITALS: BP 151/78
[2020-02-07] MEDS: GABAPENTIN 300 MG CAPSULE PO SCH (21:19)
[2020-02-07 23:17] VITALS: BP 137/76
[2020-02-08] VITALS (25 sets, daily range): BP systolic 99–165; BP diastolic 53–85
[2020-02-08] MEDS: LACTATED RINGERS 1000ML 1,000 ML IV SCH ×4 (02:02→21:44)
[2020-02-08] MEDS: ZOSYN 3.375GM+NS 50ML 50 ML IV SCH ×4 (03:30→18:46)
[2020-02-08 04:45] LABS: BASOPHILS % (AUTO) 0.4 % (0.0-5.0); EOSINOPHILS % (AUTO) 2.6 % (0.0-8.0); HEMATOCRIT 36.4 % (36-48); LYMPHOCYTES % (AUTO) 31.2 % (21.0-51.0); MEAN CORPUSCULAR HGB CONC 35.2 g/dL (32.0-36.0); MEAN CORPUSCULAR VOLUME 88.1 fL (79-99); MONOCYTES % (AUTO) 5.4 % (3.0-13.0); NEUTROPHILS % (AUTO) 60.2 % (40.0-77.0); PLATELET COUNT (AUTO) 96 K/uL (130-400); RED BLOOD CELL COUNT(AUTO) 4.13 MIL/uL (4.00-5.50)
[2020-02-08 05:18] LABS: ALBUMIN 3.1 g/dL (3.5-5.0); BILIRUBIN,TOTAL 1.5 mg/dL (0.2-1.0); CREATININE 0.8 mg/dL (0.5-1.5); POTASSIUM 3.5 mmol/L (3.5-5.1); TOTAL PROTEIN, SERUM 6.3 g/dL (6.0-8.3)
[2020-02-08] MEDS: LOSARTAN 50 MG TABLET PO SCH (08:49)
[2020-02-08] MEDS: FAMOTIDINE/PF 20 MG/2 ML VIAL IV SCH ×2 (08:49→21:11)
--- NOTE | 2020-02-08 10:10 | NUR ---
PATIENT WAS TAKEN VIA BED TO PACU FOR LAP CELINE. PATIENT STABLE AND THIS TIME AND APPEARS COMFORTABLE. ZOSYN ISSUED TO PACU STAFF FOR INFUSION AT 12NOON.
[2020-02-08] MEDS ORDERED: DEXAMETHASONE SOD PHOSPHATE 10MG/ML 1ML VIAL ONE (10:39)
[2020-02-08] MEDS ORDERED: LIDOCAINE PF 2% 5ML ABBOJECT ONE (10:39)
[2020-02-08] MEDS ORDERED: SUCCINYLCHOLINE CHLORIDE 20 MG/ML 10 ML VIAL ONE (10:39)
[2020-02-08] MEDS ORDERED: GLYCOPYRROLATE 1 MG/5 ML SYRINGE ONE (10:39)
[2020-02-08] MEDS ORDERED: ONDANSETRON HCL 4 MG/2 ML VIAL ONE (10:40)
[2020-02-08] MEDS ORDERED: PROPOFOL 10 MG/ML 20ML VIAL IV ONE (10:40)
[2020-02-08] MEDS ORDERED: MIDAZOLAM HCL 1 MG/ML 2ML VIAL ONE (10:40)
[2020-02-08] MEDS ORDERED: FENTANYL CITRATE PF 50 MCG/1 ML 2ML VIAL ONE (10:40)
[2020-02-08] MEDS ORDERED: NEOSTIGMINE 5MG/5ML SYR IV ONE (10:40)
[2020-02-08] MEDS ORDERED: ROCURONIUM 10MG/1ML SYR 10 MG/ML ML ONE (10:40)
[2020-02-08] MEDS ORDERED: MEPERIDINE-PF 25 MG/ML SYG ONE (10:51)
[2020-02-08] MEDS ORDERED: BUPIVACAINE/PF 0.5% 30ML VIAL ONE (11:02)
[2020-02-08] MEDS: GABAPENTIN 100 MG CAPSULE PO SCH (12:00)
--- NOTE | 2020-02-08 13:45 | NUR ---
PATIENT BACK FROM PACU AND LAP CELINE WAS DONE. PATIENT HAS THREE SMALL INCISONS TO ABDOMEN WITH DERMABOND. INCISIONS ARE CLEAN AND DRY AND NO REDNESS NOTED TO SITE.
--- NOTE | 2020-02-08 15:30 | NUR ---
PATIENT RESTING QUIETLY AND WATCHING TV. DENIES PAIN. VITAL SIGNS WNL. INCISIONS OPEN TO AIR WITH DERMABOND AND NO DRAINAGE OR REDNESS NOTED TO SITE.
[2020-02-08] MEDS: KETOROLAC TROMETHAMINE 15MG/ML IV PRN (18:50)
[2020-02-08] MEDS: GABAPENTIN 300 MG CAPSULE PO SCH (21:11)
[2020-02-09] MEDS: KETOROLAC TROMETHAMINE 15MG/ML IV PRN ×2 (01:40→09:42)
[2020-02-09] MEDS: ZOSYN 3.375GM+NS 50ML 50 ML IV SCH ×2 (03:18→12:12)
[2020-02-09 03:30] VITALS: BP 121/69
[2020-02-09] MEDS: LACTATED RINGERS 1000ML 1,000 ML IV SCH (03:45)
[2020-02-09 06:18] LABS: BASOPHILS % (AUTO) 0.3 % (0.0-5.0); HEMATOCRIT 34.9 % (36-48); LYMPHOCYTES % (AUTO) 19.6 % (21.0-51.0); MEAN CORPUSCULAR HEMOGLOBIN 30.6 pg (27.0-33.0); MEAN CORPUSCULAR HGB CONC 36.1 g/dL (32.0-36.0); MEAN CORPUSCULAR VOLUME 84.7 fL (79-99); MONOCYTES % (AUTO) 3.4 % (3.0-13.0); NEUTROPHILS % (AUTO) 76.6 % (40.0-77.0); PLATELET COUNT (AUTO) 104 K/uL (130-400); RED BLOOD CELL COUNT(AUTO) 4.12 MIL/uL (4.00-5.50); RED CELL DISTRIBUTION WIDTH 11.6 % (11.0-15.5); WHITE BLOOD COUNT (AUTO) 6.7 K/uL (4.8-10.8)
[2020-02-09 06:35] LABS: BILIRUBIN,TOTAL 0.9 mg/dL (0.2-1.0); CREATININE 0.7 mg/dL (0.5-1.5); POTASSIUM 3.8 mmol/L (3.5-5.1); TOTAL PROTEIN, SERUM 6.4 g/dL (6.0-8.3)
[2020-02-09 07:35] VITALS: BP 144/79
[2020-02-09] MEDS: LOSARTAN 50 MG TABLET PO SCH (09:00)
[2020-02-09] MEDS: FAMOTIDINE/PF 20 MG/2 ML VIAL IV SCH (09:42)
[2020-02-09 11:21] VITALS: BP 138/71
[2020-02-09] MEDS: GABAPENTIN 100 MG CAPSULE PO SCH (12:12)
[2020-02-09 16:00] VITALS: BP 137/77
--- NOTE | 2020-02-09 18:30 | NUR ---
DR. GO CALLED AND INFORMED OF PATIENT STATUS AND DISCHARGED BY HOSPITALIST AND HE WAS OKAY FOR PATIENT TO BE DISCHARGED. PT TO FOLLOW UP IN HIS OFFICE IN ONE WEEK.
--- NOTE | 2020-02-09 18:45 | NUR ---
PIV REMOVED FROM RAC AND SITE WNL.
--- NOTE | 2020-02-09 19:20 | NUR ---
DISCHARGE INSTRUCTIONS GIVEN AND PATIENT VERBALIZED UNDERSTANDING INSTRUCTIONS GIVEN. PATIENT TO SCHEDULE FOLLOW UP APPOINTMENT WITH DR. GO IN ONE WEEK AND WITH HER PRIMARY CARE PROVIDER IN ONE WEEK. PATIENT VERBALIZED UNDERSTANDING NEED TO SCHEDULE APPOINTMENTS AND INDICATED HAVING TO CANCEL BOTH APPOINTMENTS DUE TO BEING HOSPITALIZED.
--- NOTE | 2020-02-09 19:25 | NUR ---
PATIENT WAS TAKEN VIA W/C TO FAMILY VEHICLE AND WAS DISCHARGED TO HER SIGNIFICANT OTHER IN STABLE CONDITION.
== END 2020-02-09 19:25 | disposition home or self-care (01) | DRG 417 ==
LOC: EDH 20:49 → EDHIP 23:17 → WSH 02-06 10:30
PROVIDERS: ADMIT Internal Medicine; ATTEND Internal Medicine
PROC: 0FT44ZZ Resection of Gallbladder, Percutaneous Endoscopic Approach (ICD-10-PCS; principal; 2020-02-08 11:42)
DX: K80.12 Calculus of gallbladder with acute and chronic cholecystitis without obstruction (principal); K85.10 Biliary acute pancreatitis without necrosis or infection; K86.1 Other chronic pancreatitis; I10 Essential (primary) hypertension; K75.89 Other specified inflammatory liver diseases; K76.0 Fatty (change of) liver, not elsewhere classified; K82.8 Other specified diseases of gallbladder; Z88.2 Allergy status to sulfonamides; Z90.710 Acquired absence of both cervix and uterus; Z83.3 Family history of diabetes mellitus; Z82.5 Family history of asthma and other chronic lower respiratory diseases; Z82.3 Family history of stroke; Z82.0 Family history of epilepsy and other diseases of the nervous system; Z82.49 Family history of ischemic heart disease and other diseases of the circulatory system
CPT/HCPCS: 36415; 74183; 76705; 80048; 80053; 80076; 81003; 82150; 83690; 83735; 85025; A9579; G0378; J0330; J1100; J1170; J1885; J2001; J2175; J2250; J2405; J2543; J2704; J2710; J3010; J3490; J7030; J7120

== ENCOUNTER → 2020-06-19 | Outpatient (CLI) | payer OTHER ==
[~2020-06-19] MED LIST changes: -ALBU8.5H8 IH
== END | disposition home or self-care (01) ==
LOC: RAH 12:12
PROVIDERS: ATTEND Internal Medicine Cardiovascular Disease
DX: Z13.6 Encounter for screening for cardiovascular disorders (principal)
CPT/HCPCS: 75571

== ENCOUNTER → 2020-06-24 | Outpatient (CLI) | payer OTHER ==
[2020-06-24 09:18] LABS: BASOPHILS % (AUTO) 0.2 % (0.0-5.0); HEMATOCRIT 45.9 % (36-48); LYMPHOCYTES % (AUTO) 41.6 % (21.0-51.0); MEAN CORPUSCULAR HEMOGLOBIN 30.7 pg (27.0-33.0); MEAN CORPUSCULAR HGB CONC 34.4 g/dL (32.0-36.0); MEAN CORPUSCULAR VOLUME 89.1 fL (79-99); MONOCYTES % (AUTO) 4.7 % (3.0-13.0); NEUTROPHILS % (AUTO) 52.3 % (40.0-77.0); PLATELET COUNT (AUTO) 123 K/uL (130-400); RED BLOOD CELL COUNT(AUTO) 5.15 MIL/uL (4.00-5.50); RED CELL DISTRIBUTION WIDTH 12.7 % (11.0-15.5); WHITE BLOOD COUNT (AUTO) 4.9 K/uL (4.8-10.8)
[2020-06-24 09:25] LABS: HEMOGLOBIN A1C 6.7 % (4.0-6.0)
[2020-06-24 09:41] LABS: BILIRUBIN,TOTAL 1.6 mg/dL (0.2-1.0); CREATININE 0.8 mg/dL (0.5-1.5); POTASSIUM 4.4 mmol/L (3.5-5.1); THYROID STIMULATING HORMONE 2.09 uIU/mL (0.36-3.74); TOTAL PROTEIN, SERUM 7.9 g/dL (6.0-8.3)
== END | disposition home or self-care (01) ==
LOC: LAB 08:24
PROVIDERS: ATTEND Family Medicine
DX: I10 Essential (primary) hypertension (principal); G62.9 Polyneuropathy, unspecified; M79.10 Myalgia, unspecified site; Z68.27 Body mass index [BMI] 27.0-27.9, adult
CPT/HCPCS: 36415; 80053; 80061; 83036; 84443; 85025; 86038; 86215; 86235

== ENCOUNTER → 2020-06-25 | Outpatient (CLI) | payer OTHER | END | disposition home or self-care (01) | LOC: RAH 08:07 | PROVIDERS: ATTEND Family Medicine | DX: M79.10 Myalgia, unspecified site (principal); I10 Essential (primary) hypertension; M79.89 Other specified soft tissue disorders; Z68.27 Body mass index [BMI] 27.0-27.9, adult | CPT/HCPCS: 76604 ==

== ENCOUNTER → 2020-08-05 | Outpatient (CLI) | payer OTHER | END | disposition home or self-care (01) | LOC: RAH 07:34 | PROVIDERS: ATTEND Family Medicine | DX: N60.01 Solitary cyst of right breast (principal); N60.02 Solitary cyst of left breast | CPT/HCPCS: 77066 ==

== ENCOUNTER → 2020-08-26 | Outpatient (CLI) | payer OTHER | END | disposition home or self-care (01) | LOC: RAH 09:29 | PROVIDERS: ATTEND Family Medicine | DX: K46.9 Unspecified abdominal hernia without obstruction or gangrene (principal); K43.2 Incisional hernia without obstruction or gangrene; K76.0 Fatty (change of) liver, not elsewhere classified; R16.1 Splenomegaly, not elsewhere classified; Z90.49 Acquired absence of other specified parts of digestive tract | CPT/HCPCS: 76700 ==

== ENCOUNTER 2020-10-28 06:56 | Day surgery (SDC) | payer OTHER ==
[~2020-10-28] VITALS: Ht 167.6 cm; Wt 77.9 kg
[~2020-10-28 06:56] MED LIST changes: +0.9%NACL 1000ML 1,000 ML IV ONE; +METF-444 PO
[2020-10-28 08:30] VITALS: BP 145/89
[2020-10-28] MEDS ORDERED: LIDOCAINE PF 100MG/5ML (2%) SYRINGE 5ML ONE (09:14)
[2020-10-28] MEDS ORDERED: MIDAZOLAM HCL 1 MG/ML 2ML VIAL ONE (09:14)
[2020-10-28] MEDS ORDERED: PROPOFOL 10 MG/ML 20ML VIAL IV ONE (09:14)
[2020-10-28] MEDS ORDERED: FENTANYL CITRATE PF 50 MCG/1 ML 2ML VIAL ONE (09:14)
[2020-10-28 09:33] VITALS: BP 113/72
[2020-10-28 09:48] VITALS: BP 101/52
[2020-10-28 10:03] VITALS: BP 102/60
[2020-10-28 10:20] VITALS: BP 111/69
== END 2020-10-28 10:25 | disposition home or self-care (01) ==
LOC: ENDO 06:56
PROVIDERS: ATTEND Internal Medicine Gastroenterology
DX: R14.0 Abdominal distension (gaseous) (principal); Z20.822 Contact with and (suspected) exposure to COVID-19; K29.70 Gastritis, unspecified, without bleeding; K21.9 Gastro-esophageal reflux disease without esophagitis; K22.8 Other specified diseases of esophagus; I10 Essential (primary) hypertension; I85.00 Esophageal varices without bleeding; K76.9 Liver disease, unspecified; K76.0 Fatty (change of) liver, not elsewhere classified; Z79.899 Other long term (current) drug therapy; Z90.710 Acquired absence of both cervix and uterus; Z79.84 Long term (current) use of oral hypoglycemic drugs; Z98.890 Other specified postprocedural states; Z90.49 Acquired absence of other specified parts of digestive tract
CPT/HCPCS: 43239; 82948 ×2; 87635; A4215; A4221; A4222; A4223; A4606; A4620; A4657; A4663; C9803; J2001; J2250; J2704; J3010; J7030

== ENCOUNTER → 2020-10-29 | Outpatient (CLI) | payer OTHER ==
[~2020-10-29] MED LIST changes: -0.9%NACL 1000ML 1,000 ML IV ONE
== END | disposition home or self-care (01) ==
LOC: RAH 09:11
PROVIDERS: ATTEND Internal Medicine
DX: M19.041 Primary osteoarthritis, right hand (principal); M19.042 Primary osteoarthritis, left hand; M24.841 Other specific joint derangements of right hand, not elsewhere classified; M24.842 Other specific joint derangements of left hand, not elsewhere classified

== ENCOUNTER 2021-03-02 07:08 | Day surgery (SDC) | payer OTHER ==
[2021-02-27 10:58] VITALS: BP 151/80
[~2021-03-02] VITALS: Ht 170.2 cm; Wt 74.2 kg
[2021-03-02] VITALS (12 sets, daily range): BP systolic 97–135; BP diastolic 55–79
[~2021-03-02 07:08] MED LIST changes: +0.9% NACL 500ML IV.SOLN 500 ML IV SCH; -GABA-531 PO; +PRED5TAB PO
[2021-03-02] MEDS ORDERED: 0.9%NACL 1000ML 1,000 ML IV ONE (08:04)
[2021-03-02] MEDS ORDERED: BUPIVACAINE/PF 0.5% 10ML VIAL ONE (08:18)
[2021-03-02] MEDS: CEFAZOLIN SODIUM 1 GM VIAL IVP SCH ×2 (08:34→11:10)
[2021-03-02] MEDS ORDERED: CELE-84 PO (08:39)
[2021-03-02] MEDS ORDERED: SUCCINYLCHOLINE CHLORIDE 20 MG/ML 10 ML VIAL ONE (08:52)
[2021-03-02] MEDS ORDERED: DEXAMETHASONE SOD PHOSPHATE 10MG/ML 1ML VIAL ONE (08:52)
[2021-03-02] MEDS ORDERED: LIDOCAINE PF 100MG/5ML (2%) SYRINGE 5ML ONE (08:52)
[2021-03-02] MEDS ORDERED: GLYCOPYRROLATE 1 MG/5 ML SYRINGE ONE (08:53)
[2021-03-02] MEDS ORDERED: ONDANSETRON 4MG INJ ONE (08:53)
[2021-03-02] MEDS ORDERED: PROPOFOL 10 MG/ML 20ML VIAL IV ONE (08:53)
[2021-03-02] MEDS ORDERED: MIDAZOLAM HCL 1 MG/ML 2ML VIAL ONE (08:53)
[2021-03-02] MEDS ORDERED: ROCURONIUM 10MG/1ML SYR 10 MG/ML ML ONE (08:53)
[2021-03-02] MEDS ORDERED: NEOSTIGMINE 5MG/5ML SYR IV ONE (08:53)
[2021-03-02] MEDS ORDERED: FENTANYL CITRATE PF 50 MCG/1 ML 2ML VIAL ONE (08:53)
[2021-03-02] MEDS ORDERED: MEPERIDINE-PF 25 MG/ML SYG ONE (08:54)
[2021-03-02] MEDS ORDERED: KETOROLAC 30MG VIAL (30MG/ML) ONE (11:24)
== END 2021-03-02 13:45 | disposition home or self-care (01) ==
LOC: DAH 07:08
PROVIDERS: ATTEND Surgery
DX: K43.2 Incisional hernia without obstruction or gangrene (principal); J44.9 Chronic obstructive pulmonary disease, unspecified; I10 Essential (primary) hypertension; E11.9 Type 2 diabetes mellitus without complications; Z79.899 Other long term (current) drug therapy; Z20.822 Contact with and (suspected) exposure to COVID-19
CPT/HCPCS: 49560; 49568; 71045; 82948 ×2; 87635; 93005; A4215; A4221; A4222; A4223; A4452; A4600; A4649; A4663; A4930; A6260; C1781; C9803; J0330; J0690; J1100; J1885; J2001; J2175; J2250; J2405; J2704; J2710; J3010; J3490 ×2; J7030

== ENCOUNTER → 2021-10-28 | Outpatient (CLI) | payer OTHER ==
[~2021-10-28] MED LIST changes: -0.9% NACL 500ML IV.SOLN 500 ML IV SCH; +CELE-84 PO
== END | disposition home or self-care (01) ==
LOC: RAH 13:23
PROVIDERS: ATTEND Family Medicine
DX: Z12.31 Encounter for screening mammogram for malignant neoplasm of breast (principal)
CPT/HCPCS: 77067

== ENCOUNTER → 2022-01-22 | Outpatient (CLI) | payer OTHER ==
[~2022-01-22] MED LIST changes: -CELE-84 PO; +HYDR200T4 PO
[2022-01-22 10:39] LABS: CREATININE 0.8 mg/dL (0.5-1.5); POTASSIUM 3.4 mmol/L (3.5-5.1)
== END | disposition home or self-care (01) ==
LOC: LAB 09:23
PROVIDERS: ATTEND Psychiatry & Neurology Neurology
DX: R20.2 Paresthesia of skin (principal)
CPT/HCPCS: 36415; 80048; 82306; 82390; 82525; 82607; 82746; 83520; 84207; 84425; 84630; 86038; 86215; 86235; 86255; 86431

== ENCOUNTER → 2022-02-11 | Outpatient (CLI) | payer OTHER ==
[~2022-02-11] MED LIST changes: +GADOTERATE MEGLUMINE 10 MMOL/20 ML VIAL IV ONE
== END | disposition home or self-care (01) ==
LOC: RAH 08:40
PROVIDERS: ATTEND Psychiatry & Neurology Neurology
DX: M47.812 Spondylosis without myelopathy or radiculopathy, cervical region (principal); R20.2 Paresthesia of skin
CPT/HCPCS: 72156; 70543; A9575

== ENCOUNTER → 2022-03-31 | Outpatient (CLI) | payer OTHER ==
[~2022-03-31] MED LIST changes: -GADOTERATE MEGLUMINE 10 MMOL/20 ML VIAL IV ONE
== END | disposition home or self-care (01) ==
LOC: RAH 07:51
PROVIDERS: ATTEND Internal Medicine Gastroenterology
DX: K74.60 Unspecified cirrhosis of liver (principal)
CPT/HCPCS: 76700; 93975

== ENCOUNTER → 2022-04-12 | Outpatient (CLI) | payer OTHER ==
[2022-04-12 09:26] LABS: BASOPHILS % (AUTO) 0.3 % (0.0-5.0); EOSINOPHILS % (AUTO) 1.4 % (0.0-8.0); HEMATOCRIT 42.7 % (36-48); LYMPHOCYTES % (AUTO) 30.3 % (21.0-51.0); MEAN CORPUSCULAR HEMOGLOBIN 30.1 pg (27.0-33.0); MEAN CORPUSCULAR HGB CONC 34.4 g/dL (32.0-36.0); MEAN CORPUSCULAR VOLUME 87.3 fL (79-99); MONOCYTES % (AUTO) 6.6 % (3.0-13.0); NEUTROPHILS % (AUTO) 61.1 % (40.0-77.0); PLATELET COUNT (AUTO) 84 K/uL (130-400); RED BLOOD CELL COUNT(AUTO) 4.89 MIL/uL (4.00-5.50); RED CELL DISTRIBUTION WIDTH 13.1 % (11.0-15.5); WHITE BLOOD COUNT (AUTO) 2.9 K/uL (4.8-10.8)
[2022-04-12 09:40] LABS: INR 1.05 (0.85-1.15); PROTHROMBIN TIME 11.4 SEC (9.6-11.6)
[2022-04-12 09:43] LABS: ALBUMIN 4.2 g/dL (3.5-5.0); CREATININE 0.7 mg/dL (0.5-1.5); POTASSIUM 4.1 mmol/L (3.5-5.1); TOTAL PROTEIN, SERUM 7.5 g/dL (6.0-8.3)
[2022-04-12 10:08] LABS: BASOPHILS % (MANUAL) 1 % (0-2); EOSINOPHILS % (MANUAL) 1 % (1-6); LYMPHOCYTES % (MANUAL) 43 % (22-44); MAN.DIFF COMMENT-IMPRESSION MANUAL DIFFERENTIAL; MONOCYTES % (MANUAL) 6 % (2-9); PLATELET MORPHOLOGY COMMENT DECREASED; SEGMENTED NEUTROPHILS % 49 % (40-70)
[2022-04-12 10:36] LABS: PARTIAL THROMBOPLASTIN TIME 26.8 SEC (26.3-35.5)
== END | disposition home or self-care (01) ==
LOC: LAB 08:50
PROVIDERS: ATTEND Internal Medicine Gastroenterology
DX: K74.60 Unspecified cirrhosis of liver (principal); R10.13 Epigastric pain
CPT/HCPCS: 36415; 80053; 82105; 83690; 85025; 85610; 85730

== ENCOUNTER 2022-04-18 15:41 | Emergency (ER) | payer OTHER ==
[~2022-04-18] VITALS: Ht 167.6 cm; Wt 75.7 kg
[2022-04-18] MEDS ORDERED: FAMO40TA7 PO (16:34)
[2022-04-18] MEDS ORDERED: PRED50TA2 PO (16:34)
[2022-04-18] MEDS ORDERED: DIPH50CA37 PO (16:34)
[2022-04-18 16:43] VITALS: BP 147/88
== END 2022-04-18 16:46 | disposition home or self-care (01) ==
LOC: EDH 15:41
DX: L50.0 Allergic urticaria (principal); E11.9 Type 2 diabetes mellitus without complications; I10 Essential (primary) hypertension; Z79.52 Long term (current) use of systemic steroids; Z79.899 Other long term (current) drug therapy; Z88.2 Allergy status to sulfonamides; Z90.49 Acquired absence of other specified parts of digestive tract

== ENCOUNTER 2022-05-03 06:53 | Day surgery (SDC) | payer OTHER ==
[2022-04-30 09:50] LABS: BASOPHILS % (AUTO) 0.3 % (0.0-5.0); EOSINOPHILS % (AUTO) 1.2 % (0.0-8.0); HEMATOCRIT 41.6 % (36-48); LYMPHOCYTES % (AUTO) 31.1 % (21.0-51.0); MEAN CORPUSCULAR HGB CONC 35.3 g/dL (32.0-36.0); MEAN CORPUSCULAR VOLUME 84.9 fL (79-99); MONOCYTES % (AUTO) 6.5 % (3.0-13.0); NEUTROPHILS % (AUTO) 60.6 % (40.0-77.0); PLATELET COUNT (AUTO) 94 K/uL (130-400); RED CELL DISTRIBUTION WIDTH 12.9 % (11.0-15.5); WHITE BLOOD COUNT (AUTO) 3.2 K/uL (4.8-10.8)
[2022-04-30 10:06] LABS: ALBUMIN 4.3 g/dL (3.5-5.0); CARBON DIOXIDE 27 mmol/L (21-32); CHLORIDE 104 mmol/L (101-111); CREATININE 0.7 mg/dL (0.5-1.5); GLOMERULAR FILTR. RATE CALC 93 mL/min (>60); GLUCOSE,RANDOM 171 mg/dL (70-105); POTASSIUM 4.4 mmol/L (3.5-5.1); SODIUM SERUM 138 mmol/L (136-145); UREA NITROGEN, BLOOD 11 mg/dL (7-18)
[2022-04-30 10:26] LABS: CRP QUANTITATIVE < 2.00 mg/L (0.00-9.0)
[2022-04-30 11:59] VITALS: BP 134/70
[2022-05-03] VITALS (16 sets, daily range): BP systolic 108–132; BP diastolic 61–79
[~2022-05-03] VITALS: Ht 167.6 cm; Wt 76.4 kg
[~2022-05-03 06:53] MED LIST changes: +ATOR10 PO; +CHOL200013 PO; -PRED5TAB PO
[2022-05-03] MEDS ORDERED: 0.9%NACL 1000ML 1,000 ML IV ONE (08:36)
[2022-05-03] MEDS ORDERED: BUPIVACAINE/PF 0.5% 30ML VIAL ONE (08:41)
[2022-05-03] MEDS: CEFAZOLIN SODIUM 2 GM VIAL IVPB SCH ×2 (08:53→11:00)
[2022-05-03] MEDS ORDERED: MIDAZOLAM HCL 1 MG/ML 2ML VIAL ONE ×4 (10:45→12:34)
[2022-05-03] MEDS ORDERED: PROPOFOL 10 MG/ML 20ML VIAL IV ONE (10:59)
[2022-05-03] MEDS ORDERED: FENTANYL CITRATE PF 50 MCG/1 ML 2ML VIAL ONE ×2 (10:59→11:21)
[2022-05-03] MEDS ORDERED: ROCURONIUM 10MG/1ML SYR 10 MG/ML ML ONE (10:59)
[2022-05-03] MEDS ORDERED: ACET-2079 PO (12:02)
== END 2022-05-03 13:50 | disposition home or self-care (01) ==
LOC: DAH 06:53
PROVIDERS: ATTEND Student in an Organized Health Care Education/Training Program
DX: M65.331 Trigger finger, right middle finger (principal); M65.341 Trigger finger, right ring finger; Z20.822 Contact with and (suspected) exposure to COVID-19; I10 Essential (primary) hypertension; E66.9 Obesity, unspecified; E11.9 Type 2 diabetes mellitus without complications; Z79.84 Long term (current) use of oral hypoglycemic drugs; Z90.710 Acquired absence of both cervix and uterus; Z90.49 Acquired absence of other specified parts of digestive tract; Z98.890 Other specified postprocedural states; Z83.3 Family history of diabetes mellitus; Z82.49 Family history of ischemic heart disease and other diseases of the circulatory system; Z80.3 Family history of malignant neoplasm of breast; Z79.899 Other long term (current) drug therapy; Z88.1 Allergy status to other antibiotic agents; Z68.27 Body mass index [BMI] 27.0-27.9, adult; Z79.01 Long term (current) use of anticoagulants
CPT/HCPCS: 82040; 80048; 84703; 85025; 84134; 86140; 87426; 36415; 93005; 87641; 26055 ×2; 82948 ×2; A4663; A4606; J3010; J7030; J2250 ×2; J2704; J3490; J0690; A6223; A4649 ×2; A4215; A4223; A4222; A4221

== ENCOUNTER 2022-07-09 18:13 | Emergency (ER) | payer OTHER ==
[~2022-07-09] VITALS: Ht 162.6 cm; Wt 74.4 kg
[2022-07-09 18:58] LABS: BASOPHILS % (AUTO) 0.2 % (0.0-5.0); EOSINOPHILS % (AUTO) 0.4 % (0.0-8.0); HEMATOCRIT 47.2 % (36-48); LYMPHOCYTES % (AUTO) 18.1 % (21.0-51.0); MEAN CORPUSCULAR HEMOGLOBIN 29.3 pg (27.0-33.0); MEAN CORPUSCULAR VOLUME 83.7 fL (79-99); MONOCYTES % (AUTO) 4.7 % (3.0-13.0); NEUTROPHILS % (AUTO) 76.2 % (40.0-77.0); PLATELET COUNT (AUTO) 89 K/uL (130-400); RED BLOOD CELL COUNT(AUTO) 5.64 MIL/uL (4.00-5.50); RED CELL DISTRIBUTION WIDTH 13.1 % (11.0-15.5); WHITE BLOOD COUNT (AUTO) 4.9 K/uL (4.8-10.8)
[2022-07-09] MEDS ORDERED: MORPHINE 4 MG SYG IVP ONE ×2 (19:00→20:30)
[2022-07-09] MEDS ORDERED: PANTOPRAZOLE 40 MG/VIAL IV ONE (19:00)
[2022-07-09] MEDS ORDERED: ONDANSETRON 4MG INJ IV ONE (19:00)
[2022-07-09] MEDS ORDERED: 0.9%NACL 1000ML 1,000 ML IV SCH (19:00)
[2022-07-09 19:05] LABS: CREATININE 0.8 mg/dL (0.5-1.5); POTASSIUM 3.4 mmol/L (3.5-5.1)
[2022-07-09 19:10] LABS: ALBUMIN 4.8 g/dL (3.5-5.0); TOTAL PROTEIN, SERUM 8.4 g/dL (6.0-8.3)
[2022-07-09] MEDS ORDERED: ONDANSETRON 4MG INJ IVP ONE (20:00)
[2022-07-09] MEDS ORDERED: MAG/ALUM/SIMETH 30 ML UDCUP PO ONE (20:00)
[2022-07-09] MEDS ORDERED: KCL 20 MEQ ERTAB PO ONE (20:00)
[2022-07-09] MEDS ORDERED: LIDOCAINE HCL 2% VISCOUS 15 ML UDCUP PO ONE (20:00)
[2022-07-09 21:58] LABS: APPEARANCE,URINE CLEAR (CLEAR); BILIRUBIN,URINE NEGATIVE (NEGATIVE); COLOR,URINE YELLOW (YELLOW); GLUCOSE, URINE (UA) NEGATIVE (NEGATIVE); KETONES,URINE NEGATIVE (NEGATIVE); LEUKOCYTE ESTERASE ,URINE NEGATIVE Leu/uL (NEGATIVE); NITRATE,URINE NEGATIVE (NEGATIVE); OCCULT BLOOD,URINE NEGATIVE (NEGATIVE); PH,URINE 5.5 (5.0-8.0); PROTEIN,URINE NEGATIVE (NEGATIVE)
[2022-07-09 22:02] LABS: BACTERIA,URINE RARE /HPF (None Seen); MUCUS,URINE RARE LPF (None Seen); SQUAMOUS EPITHELIAL CELL,UR RARE /HPF (0-2)
[2022-07-09 22:42] VITALS: BP 148/81
[2022-07-09] MEDS ORDERED: OMEP20CA12 PO (22:54)
== END 2022-07-09 23:06 | disposition home or self-care (01) ==
LOC: EDH 18:13
DX: N20.0 Calculus of kidney (principal); K29.70 Gastritis, unspecified, without bleeding; I10 Essential (primary) hypertension; E11.9 Type 2 diabetes mellitus without complications; E78.00 Pure hypercholesterolemia, unspecified; Z79.899 Other long term (current) drug therapy; Z79.84 Long term (current) use of oral hypoglycemic drugs; Z90.710 Acquired absence of both cervix and uterus; Z90.49 Acquired absence of other specified parts of digestive tract; Z88.2 Allergy status to sulfonamides
CPT/HCPCS: 99285; 74176; 96374; 96375; 84484; 80053; 82140; 83690; 85025; 81001; 36415; 96376; 93005; J7030; J2405; J2270 ×2; C9113

== ENCOUNTER → 2022-08-02 | Outpatient (CLI) | payer OTHER ==
[~2022-08-02] MED LIST changes: +OMEP20CA12 PO
[2022-08-02 09:56] LABS: BASOPHILS % (AUTO) 0.3 % (0.0-5.0); EOSINOPHILS % (AUTO) 1.1 % (0.0-8.0); HEMATOCRIT 44.4 % (36-48); LYMPHOCYTES % (AUTO) 29.6 % (21.0-51.0); MEAN CORPUSCULAR HEMOGLOBIN 29.3 pg (27.0-33.0); MEAN CORPUSCULAR VOLUME 86.2 fL (79-99); MONOCYTES % (AUTO) 6.3 % (3.0-13.0); NEUTROPHILS % (AUTO) 62.4 % (40.0-77.0); PLATELET COUNT (AUTO) 82 K/uL (130-400); RED BLOOD CELL COUNT(AUTO) 5.15 MIL/uL (4.00-5.50); RED CELL DISTRIBUTION WIDTH 13.5 % (11.0-15.5); WHITE BLOOD COUNT (AUTO) 3.5 K/uL (4.8-10.8)
[2022-08-02 10:04] LABS: INR 1.05 (0.85-1.15); PROTHROMBIN TIME 11.4 SEC (9.6-11.6)
[2022-08-02 10:05] LABS: PARTIAL THROMBOPLASTIN TIME 27.5 SEC (26.3-35.5)
[2022-08-02 10:11] LABS: ALBUMIN 4.4 g/dL (3.5-5.0); CREATININE 0.8 mg/dL (0.5-1.5); POTASSIUM 3.7 mmol/L (3.5-5.1); TOTAL PROTEIN, SERUM 7.9 g/dL (6.0-8.3)
== END | disposition home or self-care (01) ==
LOC: RAH 09:10
PROVIDERS: ATTEND Internal Medicine Gastroenterology
DX: K74.60 Unspecified cirrhosis of liver (principal); R10.13 Epigastric pain; R11.2 Nausea with vomiting, unspecified
CPT/HCPCS: 78264; 80053; 85025; 85610; 85730; 82105; 36415; A9541

== ENCOUNTER → 2022-08-30 | Outpatient (CLI) | payer OTHER | END | disposition home or self-care (01) | LOC: RAH 13:08 | PROVIDERS: ATTEND Family Medicine | DX: N64.4 Mastodynia (principal) | CPT/HCPCS: 77066 ==

== ENCOUNTER → 2022-09-03 | Outpatient (CLI) | payer OTHER ==
[2022-09-03 10:06] LABS: BASOPHILS % (AUTO) 0.3 % (0.0-5.0); EOSINOPHILS % (AUTO) 1.3 % (0.0-8.0); HEMATOCRIT 43.7 % (36-48); LYMPHOCYTES % (AUTO) 33.7 % (21.0-51.0); MEAN CORPUSCULAR HEMOGLOBIN 29.6 pg (27.0-33.0); MEAN CORPUSCULAR HGB CONC 34.6 g/dL (32.0-36.0); MEAN CORPUSCULAR VOLUME 85.7 fL (79-99); MONOCYTES % (AUTO) 5.9 % (3.0-13.0); NEUTROPHILS % (AUTO) 58.8 % (40.0-77.0); PLATELET COUNT (AUTO) 102 K/uL (130-400); RED CELL DISTRIBUTION WIDTH 13.1 % (11.0-15.5)
[2022-09-03 10:31] LABS: ALBUMIN 4.6 g/dL (3.5-5.0); GLOMERULAR FILTR. RATE CALC 103 mL/min (>90); POTASSIUM 4.2 mmol/L (3.5-5.1); UREA NITROGEN, BLOOD 12 mg/dL (7-18)
[2022-09-03 10:35] LABS: ALANINE AMINOTRANSFERASE 32 U/L (12-78); ASPARTATE AMINOTRANSFERASE 22 U/L (10-37); CARBON DIOXIDE 28 mmol/L (21-32); CHLORIDE 107 mmol/L (101-111); CREATININE 0.7 mg/dL (0.5-1.5); GLUCOSE,RANDOM 137 mg/dL (70-105); SODIUM SERUM 142 mmol/L (136-145)
[2022-09-03 10:40] LABS: CRP QUANTITATIVE < 2.00 mg/L (0.00-9.0)
[2022-09-03 11:03] LABS: ERYTHROCYTE SEDIMENTATION RATE 7 MM/HR (0-30)
[2022-09-03 11:22] LABS: EOSINOPHILS % (MANUAL) 1 % (1-6); LYMPHOCYTES % (MANUAL) 32 % (22-44); MAN.DIFF COMMENT-IMPRESSION MANUAL DIFFERENTIAL; MONOCYTES % (MANUAL) 8 % (2-9); PLATELET MORPHOLOGY COMMENT DECREASED; SEGMENTED NEUTROPHILS % 59 % (40-70)
== END | disposition home or self-care (01) ==
LOC: LAB 09:17
PROVIDERS: ATTEND Internal Medicine
DX: Z79.899 Other long term (current) drug therapy (principal)
CPT/HCPCS: 36415; 80053; 85025; 85651; 86140; 86200; 86431; 86812

== ENCOUNTER 2022-12-04 19:21 | Inpatient (IN) | payer OTHER ==
[~2022-12-04] VITALS: Ht 167.6 cm; Wt 74.8 kg
[~2022-12-04 19:21] MED LIST changes: -HYDR200T4 PO; +HYDR200T75 PO
[2022-12-04] MEDS ORDERED: METOPROLOL TARTRATE 1 MG/ML 5ML VIAL IV ONE (20:00)
[2022-12-04] MEDS ORDERED: HYDRALAZINE 20MG/ML VIAL IV ONE (20:00)
[2022-12-04 20:06] LABS: BASOPHILS # (AUTO) 0.02 K/uL (0.00-0.20); BASOPHILS % (AUTO) 0.6 % (0.0-5.0); EOSINOPHILS # (AUTO) 0.04 K/uL (0.00-0.70); EOSINOPHILS % (AUTO) 1.1 % (0.0-8.0); HEMATOCRIT 43.7 % (36-48); LYMPHOCYTES # (AUTO) 1.2 K/uL (1.0-4.8); LYMPHOCYTES % (AUTO) 33.7 % (21.0-51.0); MEAN CORPUSCULAR HEMOGLOBIN 29.1 pg (27.0-33.0); MEAN CORPUSCULAR HGB CONC 34.8 g/dL (32.0-36.0); MEAN CORPUSCULAR VOLUME 83.6 fL (79-99); MONOCYTES # (AUTO) 0.2 K/uL (0.1-1.0); MONOCYTES % (AUTO) 5.5 % (3.0-13.0); NEUTROPHILS # (AUTO) 2.1 K/uL (1.8-7.7); NEUTROPHILS % (AUTO) 59.1 % (40.0-77.0); PLATELET COUNT (AUTO) 94 K/uL (130-400); RED BLOOD CELL COUNT(AUTO) 5.23 MIL/uL (4.00-5.50); RED CELL DISTRIBUTION WIDTH 13.2 % (11.0-15.5); WHITE BLOOD COUNT (AUTO) 3.6 K/uL (4.8-10.8)
[2022-12-04 20:12] LABS: POTASSIUM 3.5 mmol/L (3.5-5.1)
[2022-12-04 20:23] LABS: AMPHET/METH SCREEN,URINE NEGATIVE (NEGATIVE); BARBITURATE SCREEN, URINE NEGATIVE (NEGATIVE); BENZODIAZEPINES SCREEN,URINE NEGATIVE (NEGATIVE); CANNABINOID SCREEN,URINE NEGATIVE (NEGATIVE); COCAINE SCREEN,URINE NEGATIVE (NEGATIVE); OPIATE SCREEN,URINE NEGATIVE (NEGATIVE); PHENCYCLIDINE SCREEN,URINE NEGATIVE (NEGATIVE)
[2022-12-04 20:31] LABS: APPEARANCE,URINE CLEAR (CLEAR); BILIRUBIN,URINE NEGATIVE (NEGATIVE); COLOR,URINE YELLOW (YELLOW); GLUCOSE, URINE (UA) >=1000 mg/dL (NEGATIVE); KETONES,URINE NEGATIVE (NEGATIVE); LEUKOCYTE ESTERASE ,URINE NEGATIVE Leu/uL (NEGATIVE); NITRATE,URINE NEGATIVE (NEGATIVE); OCCULT BLOOD,URINE NEGATIVE (NEGATIVE); PH,URINE 5.5 (5.0-8.0); PROTEIN,URINE 50 mg/dL (NEGATIVE); UROBILINOGEN,URINE 0.2 mg/dL (0.2-1.0)
[2022-12-04 20:32] LABS: ALBUMIN 4.1 g/dL (3.5-5.0); BILIRUBIN,TOTAL 1.3 mg/dL (0.2-1.0); MAGNESIUM 1.7 mg/dL (1.80-2.40); TOTAL PROTEIN, SERUM 7.7 g/dL (6.0-8.3)
[2022-12-04 20:34] LABS: ALCOHOL, BLOOD < 3 mg/dL (0-10); THYROID STIMULATING HORMONE 4.86 uIU/mL (0.36-3.74)
[2022-12-04 20:48] LABS: ADD UA MICROSCOPIC YES
[2022-12-04 21:18] LABS: BACTERIA,URINE RARE /HPF (None Seen); MUCUS,URINE RARE LPF (None Seen); RBC,URINE 0-1 /HPF (0-1); SQUAMOUS EPITHELIAL CELL,UR RARE /HPF (0-2)
[2022-12-04] MEDS ORDERED: MORPHINE 2 MG SYG IV PRN (23:30)
[2022-12-04] MEDS ORDERED: POTASSIUM CHLORIDE 20MEQ/100ML 100 ML IV PRN (23:30)
[2022-12-04] MEDS ORDERED: ONDANSETRON 4MG INJ IV PRN (23:30)
[2022-12-04] MEDS ORDERED: POTASSIUM CHLORIDE 10% ELIXIR 20 MEQ/15 ML UDCUP PO PRN (23:30)
[2022-12-04] MEDS ORDERED: ASPIRIN 81MG CHEW TAB PO ONE (23:30)
[2022-12-04] MEDS ORDERED: ACETAMINOPHEN 325 MG TAB PO PRN ×2 (23:30)
[2022-12-04] MEDS ORDERED: MORPHINE 4 MG SYG IV PRN (23:30)
[2022-12-05] MEDS: NITROGLYCERIN 1GM OINT 1 INCH/1GM TD SCH (00:42)
[2022-12-05] MEDS: MAGNESIUM 2GM PREMIX 50ML 50 ML IV PRN (02:21)
[2022-12-05] MEDS ORDERED: GABA-529 PO (03:16)
[2022-12-05] MEDS ORDERED: [UNRECOGNIZED DRUG - CODE] PO (03:17)
[2022-12-05 03:18] VITALS: BP 148/92; PULSE 82; RESP 21
[2022-12-05 03:30] VITALS: O2SAT 98
[2022-12-05] MEDS: ENOXAPARIN SODIUM 40 MG/0.4 ML SYRINGE SQ SCH (09:00)
[2022-12-05] MEDS: ASPIRIN 81MG CHEW TAB PO SCH (09:00)
[2022-12-05] MEDS: METOPROLOL TARTRATE 25 MG TAB PO SCH ×2 (09:00→21:00)
[2022-12-05] MEDS: FAMOTIDINE 20MG TAB PO SCH ×2 (09:00→21:00)
[2022-12-06 00:44] VITALS: BP 117/73; PULSE 72; RESP 18
[2022-12-06] MEDS: NITROGLYCERIN 1GM OINT 1 INCH/1GM TD SCH ×2 (00:56→11:03)
[2022-12-06 01:46] VITALS: O2SAT 97
[2022-12-06 03:01] VITALS: BP 102/64; PULSE 67; RESP 18
[2022-12-06] MEDS: INSULIN HUMULIN R 100 UNIT/ML 3ML SQ SCH ×2 (06:38→11:14)
[2022-12-06 07:00] VITALS: BP 128/66; PULSE 69; RESP 20
[2022-12-06 08:54] LABS: ALBUMIN 3.7 g/dL (3.5-5.0); BILIRUBIN,TOTAL 1.5 mg/dL (0.2-1.0); CREATININE 0.6 mg/dL (0.5-1.5); MAGNESIUM 1.8 mg/dL (1.80-2.40); POTASSIUM 3.7 mmol/L (3.5-5.1)
[2022-12-06 09:03] LABS: MEAN CORPUSCULAR HEMOGLOBIN 29.1 pg (27.0-33.0); MEAN CORPUSCULAR HGB CONC 34.1 g/dL (32.0-36.0); MEAN CORPUSCULAR VOLUME 85.2 fL (79-99); PLATELET COUNT (AUTO) 92 K/uL (130-400); RED BLOOD CELL COUNT(AUTO) 4.81 MIL/uL (4.00-5.50); RED CELL DISTRIBUTION WIDTH 13.1 % (11.0-15.5); WHITE BLOOD COUNT (AUTO) 2.9 K/uL (4.8-10.8)
[2022-12-06] MEDS: ASPIRIN 81MG CHEW TAB PO SCH (09:13)
[2022-12-06] MEDS: METOPROLOL TARTRATE 25 MG TAB PO SCH (09:14)
[2022-12-06] MEDS: FAMOTIDINE 20MG TAB PO SCH (09:14)
[2022-12-06] MEDS: ENOXAPARIN SODIUM 40 MG/0.4 ML SYRINGE SQ SCH (09:15)
[2022-12-06 09:33] LABS: BAND NEUTROPHILS % (MANUAL) 1 % (0-2); EOSINOPHILS % (MANUAL) 1 % (1-6); LYMPHOCYTES % (MANUAL) 33 % (22-44); MAN.DIFF COMMENT-IMPRESSION MANUAL DIFFERENTIAL; MONOCYTES % (MANUAL) 6 % (2-9); SEGMENTED NEUTROPHILS % 59 % (40-70); TOTAL CELLS COUNTED 100
[2022-12-06 09:34] LABS: PLATELET MORPHOLOGY COMMENT DECREASED
[2022-12-06] MEDS: KCL 20 MEQ ERTAB PO PRN ×2 (10:59→13:21)
[2022-12-06 11:00] VITALS: BP 136/79; PULSE 72; RESP 20
[2022-12-06] MEDS: MAGNESIUM 2GM PREMIX 50ML 50 ML IV PRN (11:03)
[2022-12-06] MEDS ORDERED: METO25 PO (14:06)
[2022-12-06] MEDS ORDERED: ASPI-1005 PO (14:06)
[2022-12-07 07:52] LABS: MEAN CORPUSCULAR HEMOGLOBIN 29.3 pg (27.0-33.0); MEAN CORPUSCULAR HGB CONC 34.5 g/dL (32.0-36.0); NEUTROPHILS % (AUTO) 54.1 % (40.0-77.0); PLATELET COUNT (AUTO) 83 K/uL (130-400); RED BLOOD CELL COUNT(AUTO) 4.47 MIL/uL (4.00-5.50); RED CELL DISTRIBUTION WIDTH 13.4 % (11.0-15.5); WHITE BLOOD COUNT (AUTO) 3.1 K/uL (4.8-10.8)
[2022-12-07 07:53] LABS: BASOPHILS % (AUTO) 0.3 % (0.0-5.0); EOSINOPHILS % (AUTO) 1.3 % (0.0-8.0); LYMPHOCYTES % (AUTO) 35.3 % (21.0-51.0)
[2022-12-07 07:54] LABS: HEMOGLOBIN A1C 7.2 % (4.0-6.0)
[2022-12-07 07:55] LABS: POTASSIUM 3.5 mmol/L (3.5-5.1)
[2022-12-07 07:56] LABS: CREATININE 0.7 mg/dL (0.5-1.5); PHOSPHORUS 3.8 mg/dL (2.5-4.9)
== END 2022-12-06 15:45 | disposition home or self-care (01) | DRG 309 ==
LOC: EDH 19:21 → EDHIP 23:27 → 2AH 12-05 02:30
PROVIDERS: ADMIT Internal Medicine; ATTEND Internal Medicine
DX: I47.1 Supraventricular tachycardia (principal); I16.1 Hypertensive emergency; E83.42 Hypomagnesemia; K74.60 Unspecified cirrhosis of liver; E78.00 Pure hypercholesterolemia, unspecified; E11.9 Type 2 diabetes mellitus without complications; I10 Essential (primary) hypertension; Z79.82 Long term (current) use of aspirin; Z82.0 Family history of epilepsy and other diseases of the nervous system; Z82.3 Family history of stroke; Z82.49 Family history of ischemic heart disease and other diseases of the circulatory system; Z82.5 Family history of asthma and other chronic lower respiratory diseases; Z83.3 Family history of diabetes mellitus; Z90.710 Acquired absence of both cervix and uterus
CPT/HCPCS: 36415; 71045; 80048; 80053; 80305; 81001; 82948; 83036; 83735; 84100; 84443; 84484; 85025; 85027; 93005; G0378; J0360; J1650; J1815; J3475; J3490

== ENCOUNTER → 2022-12-22 | Outpatient (CLI) | payer OTHER ==
[~2022-12-22] MED LIST changes: +ASPI-1005 PO; -HYDR200T75 PO; -LOSA50TA64 PO; +METO25 PO
[2022-12-22 13:08] LABS: CREATININE 0.8 mg/dL (0.5-1.5); MAGNESIUM 1.8 mg/dL (1.80-2.40); POTASSIUM 4.1 mmol/L (3.5-5.1); T4 (THYROXINE) 11.2 ug/dL (4.7-13.3); THYROID STIMULATING HORMONE 2.09 uIU/mL (0.36-3.74)
== END | disposition home or self-care (01) ==
LOC: LAB 10:08
PROVIDERS: ATTEND Physician Assistant
DX: M65.331 Trigger finger, right middle finger (principal); M65.342 Trigger finger, left ring finger; M65.341 Trigger finger, right ring finger; G89.29 Other chronic pain
CPT/HCPCS: 36415; 80048; 83735; 84436; 84443

== ENCOUNTER → 2023-01-03 | Outpatient (CLI) | payer OTHER ==
[~2023-01-03] MED LIST changes: +REGADENOSON 0.4 MG/5 ML PF SYG IVP ONE
== END | disposition home or self-care (01) ==
LOC: SHCH 07:32
PROVIDERS: ATTEND Internal Medicine Cardiovascular Disease
DX: R07.9 Chest pain, unspecified (principal); R00.2 Palpitations
CPT/HCPCS: 78452; 96374; 93017; J2785; A9500 ×2

== ENCOUNTER → 2023-02-28 | Outpatient (CLI) | payer OTHER ==
[~2023-02-28] MED LIST changes: +METO25TA6 PO; -REGADENOSON 0.4 MG/5 ML PF SYG IVP ONE
[2023-02-28 11:13] LABS: BASOPHILS # (AUTO) 0.01 K/uL (0.00-0.20); BASOPHILS % (AUTO) 0.3 % (0.0-5.0); EOSINOPHILS # (AUTO) 0.03 K/uL (0.00-0.70); HEMATOCRIT 42.7 % (36-48); LYMPHOCYTES % (AUTO) 33.4 % (21.0-51.0); MEAN CORPUSCULAR HEMOGLOBIN 29.7 pg (27.0-33.0); MEAN CORPUSCULAR HGB CONC 34.2 g/dL (32.0-36.0); MEAN CORPUSCULAR VOLUME 86.8 fL (79-99); MONOCYTES # (AUTO) 0.2 K/uL (0.1-1.0); MONOCYTES % (AUTO) 6.5 % (3.0-13.0); NEUTROPHILS # (AUTO) 1.7 K/uL (1.8-7.7); NEUTROPHILS % (AUTO) 58.8 % (40.0-77.0); PLATELET COUNT (AUTO) 86 K/uL (130-400); RED BLOOD CELL COUNT(AUTO) 4.92 MIL/uL (4.00-5.50); RED CELL DISTRIBUTION WIDTH 13.5 % (11.0-15.5); WHITE BLOOD COUNT (AUTO) 2.9 K/uL (4.8-10.8)
[2023-02-28 11:29] LABS: ALBUMIN 4.2 g/dL (3.5-5.0); BILIRUBIN,TOTAL 1.4 mg/dL (0.2-1.0); CREATININE 0.6 mg/dL (0.5-1.5); POTASSIUM 3.9 mmol/L (3.5-5.1); THYROID STIMULATING HORMONE 3.36 uIU/mL (0.36-3.74); TOTAL PROTEIN, SERUM 7.6 g/dL (6.0-8.3)
[2023-02-28 11:40] LABS: BAND NEUTROPHILS % (MANUAL) 1 % (0-2); BASOPHILS % (MANUAL) 1 % (0-2); LYMPHOCYTES % (MANUAL) 38 % (22-44); MONOCYTES % (MANUAL) 3 % (2-9); REACTIVE LYMPHOCYTES 2 % (0-0); SEGMENTED NEUTROPHILS % 55 % (40-70); TOTAL CELLS COUNTED 100
[2023-02-28 11:41] LABS: MAN.DIFF COMMENT-IMPRESSION MANUAL DIFFERENTIAL; PLATELET MORPHOLOGY COMMENT DECREASED
== END | disposition home or self-care (01) ==
LOC: LAB 08:54
PROVIDERS: ATTEND Internal Medicine Gastroenterology
DX: K76.0 Fatty (change of) liver, not elsewhere classified (principal); R10.13 Epigastric pain; R19.4 Change in bowel habit
CPT/HCPCS: 36415; 80053; 80061; 82150; 83690; 84443; 85025

== ENCOUNTER 2023-03-01 09:20 | Day surgery (SDC) | payer OTHER ==
[2023-02-28 11:30] VITALS: BP 143/76; PULSE 60; RESP 18
[~2023-03-01] VITALS: Ht 167.6 cm; Wt 76.4 kg
[2023-03-01 10:30] VITALS: BP 123/72; PULSE 58; RESP 12
[2023-03-01 12:32] LABS: INR 1.04 (0.85-1.15)
[2023-03-01 12:34] LABS: PARTIAL THROMBOPLASTIN TIME 27.1 SEC (26.3-35.5)
[2023-03-01] MEDS ORDERED: PROPOFOL 10 MG/ML 20ML VIAL IV ONE ×2 (13:04→13:05)
== END 2023-03-01 13:51 ==
LOC: ENDO 09:20 → DAH 09:40 → ENDO 13:51
PROVIDERS: ATTEND Internal Medicine Gastroenterology
DX: R10.13 Epigastric pain (principal); K29.50 Unspecified chronic gastritis without bleeding; K31.89 Other diseases of stomach and duodenum; K76.6 Portal hypertension; K29.00 Acute gastritis without bleeding; K21.00 Gastro-esophageal reflux disease with esophagitis, without bleeding; I85.10 Secondary esophageal varices without bleeding; Z88.1 Allergy status to other antibiotic agents; Z88.2 Allergy status to sulfonamides; Z82.49 Family history of ischemic heart disease and other diseases of the circulatory system; Z83.3 Family history of diabetes mellitus; Z82.5 Family history of asthma and other chronic lower respiratory diseases; Z82.3 Family history of stroke; Z80.9 Family history of malignant neoplasm, unspecified; Z79.82 Long term (current) use of aspirin; Z79.84 Long term (current) use of oral hypoglycemic drugs; Z79.899 Other long term (current) drug therapy
CPT/HCPCS: 85610; 85730; 82948; 36415; 88305; 88312; 43239; J2704 ×2; A4620; A4215 ×2; A4223; A7002; A4222; A4221; A4663; A4216; J7030; A4606; J3490

== ENCOUNTER 2023-08-13 17:20 | Emergency (ER) | payer OTHER ==
[~2023-08-13] VITALS: Ht 167.6 cm; Wt 73.5 kg
[~2023-08-13 17:20] MED LIST changes: -CHOL200013 PO; -GABA-529 PO; -METO25 PO; -OMEP20CA12 PO
[2023-08-13 18:03] VITALS: BP 150/99; PULSE 83; RESP 20
== END 2023-08-13 22:10 | disposition left against medical advice (07) ==
LOC: EDH 17:20
DX: R10.9 Unspecified abdominal pain (principal); Z53.21 Procedure and treatment not carried out due to patient leaving prior to being seen by health care provider
CPT/HCPCS: 99281

== ENCOUNTER → 2023-08-24 | Outpatient (CLI) | payer OTHER ==
[2023-08-24 10:17] LABS: PROTHROMBIN TIME 11.8 SEC (9.6-11.6)
[2023-08-24 10:19] LABS: PARTIAL THROMBOPLASTIN TIME 28.7 SEC (26.3-35.5)
[2023-08-24 10:22] LABS: ALBUMIN 4.1 g/dL (3.5-5.0); BILIRUBIN,TOTAL 1.7 mg/dL (0.2-1.0); CREATININE 0.7 mg/dL (0.5-1.0); POTASSIUM 3.9 mmol/L (3.5-5.1); TOTAL PROTEIN, SERUM 7.6 g/dL (6.0-8.3)
[2023-08-24 10:41] LABS: BASOPHILS # (AUTO) 0.02 K/uL (0.00-0.20); BASOPHILS % (AUTO) 0.6 % (0.0-5.0); EOSINOPHILS # (AUTO) 0.03 K/uL (0.00-0.70); EOSINOPHILS % (AUTO) 0.8 % (0.0-8.0); IMMATURE GRANULOCYTE ABSOLUTE 0.01 K/uL (0-1); LYMPHOCYTES # (AUTO) 1.1 K/uL (1.0-4.8); LYMPHOCYTES % (AUTO) 30.3 % (21.0-51.0); MEAN CORPUSCULAR HGB CONC 35.2 g/dL (32.0-36.0); MEAN CORPUSCULAR VOLUME 85.2 fL (79-99); MONOCYTES # (AUTO) 0.2 K/uL (0.1-1.0); MONOCYTES % (AUTO) 6.4 % (3.0-13.0); NEUTROPHILS # (AUTO) 2.2 K/uL (1.8-7.7); NEUTROPHILS % (AUTO) 61.6 % (40.0-77.0); PLATELET COUNT (AUTO) 95 K/uL (130-400); RED BLOOD CELL COUNT(AUTO) 4.93 MIL/uL (4.00-5.50); RED CELL DISTRIBUTION WIDTH 13.3 % (11.0-15.5); WHITE BLOOD COUNT (AUTO) 3.6 K/uL (4.8-10.8)
== END | disposition home or self-care (01) ==
LOC: LAB 08:52
PROVIDERS: ATTEND Internal Medicine Gastroenterology
DX: R10.13 Epigastric pain (principal)
CPT/HCPCS: 36415; 80053; 85025; 85610; 85730

== ENCOUNTER → 2023-08-25 | Outpatient (CLI) | payer OTHER | END | disposition home or self-care (01) | LOC: RAH 08:23 | PROVIDERS: ATTEND Internal Medicine Gastroenterology | DX: K74.60 Unspecified cirrhosis of liver (principal); R16.1 Splenomegaly, not elsewhere classified; Z90.49 Acquired absence of other specified parts of digestive tract | CPT/HCPCS: 76700; 93975 ==

== ENCOUNTER 2023-09-06 08:23 | Day surgery (SDC) | payer OTHER ==
[~2023-09-06] VITALS: Ht 167.6 cm; Wt 73.5 kg
[2023-09-06] VITALS (14 sets, daily range): BP systolic 123–149; BP diastolic 65–82; PULSE 63–75; RESP 15–19
[2023-09-06] MEDS ORDERED: 0.9%NACL 1000ML 1,000 ML IV ONE (09:48)
[2023-09-06] MEDS ORDERED: PROPOFOL 10 MG/ML 20ML VIAL IV ONE (13:49)
== END 2023-09-06 15:30 | disposition home or self-care (01) ==
LOC: SUH 08:23 → DAH 08:23 → SUH 15:30
PROVIDERS: ATTEND Internal Medicine Gastroenterology
DX: R10.13 Epigastric pain (principal); K74.69 Other cirrhosis of liver; K76.6 Portal hypertension; I85.10 Secondary esophageal varices without bleeding; K31.89 Other diseases of stomach and duodenum; K29.00 Acute gastritis without bleeding; R14.0 Abdominal distension (gaseous); E78.5 Hyperlipidemia, unspecified; I10 Essential (primary) hypertension; E11.9 Type 2 diabetes mellitus without complications; Z79.01 Long term (current) use of anticoagulants; Z98.890 Other specified postprocedural states; Z79.899 Other long term (current) drug therapy; Z90.49 Acquired absence of other specified parts of digestive tract; Z86.16 Personal history of COVID-19; Z82.49 Family history of ischemic heart disease and other diseases of the circulatory system; Z83.3 Family history of diabetes mellitus
CPT/HCPCS: 43244; 82948 ×2; J7030 ×2; J2704; A4620; A4215; A4223; A7002; A4222; J3490

== ENCOUNTER 2023-10-04 09:06 | Day surgery (SDC) | payer OTHER ==
[2023-10-04] VITALS (13 sets, daily range): BP systolic 115–130; BP diastolic 68–75; PULSE 60–69; RESP 13–18
[~2023-10-04] VITALS: Ht 167.6 cm; Wt 68.9 kg
[~2023-10-04 09:06] MED LIST changes: -ASPI-1005 PO
[2023-10-04] MEDS: 0.9%NACL 1000ML 1,000 ML IV ONE (10:55)
[2023-10-04 11:05] LABS: BASOPHILS # (AUTO) 0.02 K/uL (0.00-0.20); BASOPHILS % (AUTO) 0.6 % (0.0-5.0); EOSINOPHILS # (AUTO) 0.04 K/uL (0.00-0.70); EOSINOPHILS % (AUTO) 1.2 % (0.0-8.0); HEMATOCRIT 44.2 % (36-48); IMMATURE GRANULOCYTE ABSOLUTE 0.01 K/uL (0-1); LYMPHOCYTES # (AUTO) 1.1 K/uL (1.0-4.8); LYMPHOCYTES % (AUTO) 33.3 % (21.0-51.0); MEAN CORPUSCULAR HEMOGLOBIN 30.3 pg (27.0-33.0); MEAN CORPUSCULAR HGB CONC 34.6 g/dL (32.0-36.0); MEAN CORPUSCULAR VOLUME 87.5 fL (79-99); MONOCYTES # (AUTO) 0.2 K/uL (0.1-1.0); MONOCYTES % (AUTO) 6.7 % (3.0-13.0); NEUTROPHILS # (AUTO) 1.9 K/uL (1.8-7.7); NEUTROPHILS % (AUTO) 57.9 % (40.0-77.0); PLATELET COUNT (AUTO) 93 K/uL (130-400); RED BLOOD CELL COUNT(AUTO) 5.05 MIL/uL (4.00-5.50); RED CELL DISTRIBUTION WIDTH 13.2 % (11.0-15.5); WHITE BLOOD COUNT (AUTO) 3.3 K/uL (4.8-10.8)
[2023-10-04 11:13] LABS: CREATININE 0.6 mg/dL (0.5-1.0); POTASSIUM 4.7 mmol/L (3.5-5.1)
[2023-10-04 11:16] LABS: INR 0.96 (0.85-1.15); PROTHROMBIN TIME 11.4 SEC (9.6-11.6)
[2023-10-04 11:18] LABS: ALBUMIN 4.3 g/dL (3.5-5.0); BILIRUBIN,TOTAL 1.5 mg/dL (0.2-1.0); TOTAL PROTEIN, SERUM 7.8 g/dL (6.0-8.3)
[2023-10-04] MEDS ORDERED: MIDAZOLAM HCL 1 MG/ML 2ML VIAL ONE (13:16)
[2023-10-04] MEDS ORDERED: FENTANYL CITRATE PF 50 MCG/1 ML 2ML VIAL ONE (13:17)
[2023-10-04] MEDS ORDERED: LIDOCAINE PF 100MG/5ML (2%) SYRINGE 5ML ONE (13:17)
[2023-10-04] MEDS ORDERED: PROPOFOL 10 MG/ML 20ML VIAL IV ONE (13:17)
== END 2023-10-04 14:55 | disposition home or self-care (01) ==
LOC: DAH 09:06 → ENDO 09:06
PROVIDERS: ATTEND Internal Medicine Gastroenterology
DX: K76.6 Portal hypertension (principal); K74.69 Other cirrhosis of liver; I85.10 Secondary esophageal varices without bleeding; K29.70 Gastritis, unspecified, without bleeding; K29.00 Acute gastritis without bleeding; I10 Essential (primary) hypertension; K21.9 Gastro-esophageal reflux disease without esophagitis; E11.9 Type 2 diabetes mellitus without complications; E78.5 Hyperlipidemia, unspecified; Z90.710 Acquired absence of both cervix and uterus; Z90.49 Acquired absence of other specified parts of digestive tract; Z98.890 Other specified postprocedural states; Z86.16 Personal history of COVID-19; Z79.899 Other long term (current) drug therapy
CPT/HCPCS: 43244; 80053; 85025; 85610; 82948 ×2; 36415; J3010; J7030; J2001; J2250; J2704; A4620; A4215 ×2; A4223; A4657; A4222; A4221; A4663; A4606; J3490

== ENCOUNTER 2023-11-15 10:35 | Day surgery (SDC) | payer OTHER ==
[~2023-11-15] VITALS: Ht 198.1 cm; Wt 73.5 kg
[2023-11-15] VITALS (11 sets, daily range): BP systolic 116–148; BP diastolic 65–86; PULSE 58–63; RESP 13–16
[2023-11-15] MEDS: 0.9%NACL 1000ML 1,000 ML IV ONE (12:18)
[2023-11-15 12:29] LABS: BASOPHILS # (AUTO) 0.01 K/uL (0.00-0.20); BASOPHILS % (AUTO) 0.3 % (0.0-5.0); EOSINOPHILS # (AUTO) 0.04 K/uL (0.00-0.70); EOSINOPHILS % (AUTO) 1.3 % (0.0-8.0); HEMATOCRIT 40.7 % (36-48); IMMATURE GRANULOCYTE ABSOLUTE 0.01 K/uL (0-1); LYMPHOCYTES % (AUTO) 33.3 % (21.0-51.0); MEAN CORPUSCULAR HEMOGLOBIN 29.4 pg (27.0-33.0); MEAN CORPUSCULAR HGB CONC 35.1 g/dL (32.0-36.0); MEAN CORPUSCULAR VOLUME 83.7 fL (79-99); MONOCYTES # (AUTO) 0.2 K/uL (0.1-1.0); MONOCYTES % (AUTO) 6.7 % (3.0-13.0); NEUTROPHILS # (AUTO) 1.7 K/uL (1.8-7.7); NEUTROPHILS % (AUTO) 58.1 % (40.0-77.0); PLATELET COUNT (AUTO) 70 K/uL (130-400); RED BLOOD CELL COUNT(AUTO) 4.86 MIL/uL (4.00-5.50); RED CELL DISTRIBUTION WIDTH 12.5 % (11.0-15.5)
[2023-11-15] MEDS ORDERED: MIDAZOLAM HCL 1 MG/ML 2ML VIAL ONE (12:30)
[2023-11-15] MEDS ORDERED: FENTANYL CITRATE PF 50 MCG/1 ML 2ML VIAL ONE (12:30)
[2023-11-15 12:54] LABS: INR 1.06 (0.85-1.15); PROTHROMBIN TIME 11.4 SEC (9.6-11.6)
[2023-11-15 12:57] LABS: BAND NEUTROPHILS % (MANUAL) 1 % (0-2); EOSINOPHILS % (MANUAL) 1 % (1-6); LYMPHOCYTES % (MANUAL) 38 % (22-44); MONOCYTES % (MANUAL) 4 % (2-9); SEGMENTED NEUTROPHILS % 56 % (40-70); TOTAL CELLS COUNTED 100
[2023-11-15 12:58] LABS: MAN.DIFF COMMENT-IMPRESSION MANUAL DIFFERENTIAL; PLATELET MORPHOLOGY COMMENT DECREASED
[2023-11-15] MEDS: ONDANSETRON 4MG INJ IVP ONE (14:20)
== END 2023-11-15 15:00 | disposition home or self-care (01) ==
LOC: DAH 10:35
PROVIDERS: ATTEND Internal Medicine Gastroenterology
DX: K74.60 Unspecified cirrhosis of liver (principal); I85.10 Secondary esophageal varices without bleeding; K31.89 Other diseases of stomach and duodenum; K29.00 Acute gastritis without bleeding; K76.6 Portal hypertension; E11.9 Type 2 diabetes mellitus without complications; I10 Essential (primary) hypertension; E78.5 Hyperlipidemia, unspecified; Z90.49 Acquired absence of other specified parts of digestive tract; Z98.890 Other specified postprocedural states
CPT/HCPCS: 43244; 85025; 85610; 82948; 36415; J3010; J7030; J2250; J2405; A4620; A4215; A4657 ×2; 99152; G0500

== ENCOUNTER 2023-12-22 14:45 | Emergency (ER) | payer OTHER ==
[~2023-12-22] VITALS: Ht 167.6 cm; Wt 72.6 kg
[2023-12-22 15:11] LABS: ADD UA MICROSCOPIC YES; APPEARANCE,URINE CLEAR (CLEAR); BILIRUBIN,URINE NEGATIVE (NEGATIVE); COLOR,URINE YELLOW (YELLOW); GLUCOSE, URINE (UA) >=1000 mg/dL (NEGATIVE); KETONES,URINE NEGATIVE (NEGATIVE); LEUKOCYTE ESTERASE ,URINE 75 Leu/uL (NEGATIVE); NITRATE,URINE NEGATIVE (NEGATIVE); OCCULT BLOOD,URINE NEGATIVE (NEGATIVE); PH,URINE 5.5 (5.0-8.0); PROTEIN,URINE NEGATIVE (NEGATIVE); UROBILINOGEN,URINE 0.2 mg/dL (0.2-1.0)
[2023-12-22 15:13] LABS: MUCUS,URINE RARE LPF (None Seen); SQUAMOUS EPITHELIAL CELL,UR FEW /HPF (0-2)
[2023-12-22 15:18] LABS: BASOPHILS # (AUTO) 0.02 K/uL (0.00-0.20); BASOPHILS % (AUTO) 0.5 % (0.0-5.0); EOSINOPHILS # (AUTO) 0.04 K/uL (0.00-0.70); LYMPHOCYTES # (AUTO) 1.1 K/uL (1.0-4.8); LYMPHOCYTES % (AUTO) 28.8 % (21.0-51.0); MEAN CORPUSCULAR HEMOGLOBIN 29.8 pg (27.0-33.0); MEAN CORPUSCULAR HGB CONC 34.7 g/dL (32.0-36.0); MEAN CORPUSCULAR VOLUME 85.9 fL (79-99); MONOCYTES # (AUTO) 0.2 K/uL (0.1-1.0); MONOCYTES % (AUTO) 5.3 % (3.0-13.0); NEUTROPHILS # (AUTO) 2.6 K/uL (1.8-7.7); NEUTROPHILS % (AUTO) 64.4 % (40.0-77.0); PLATELET COUNT (AUTO) 97 K/uL (130-400); RED BLOOD CELL COUNT(AUTO) 5.24 MIL/uL (4.00-5.50); RED CELL DISTRIBUTION WIDTH 13.1 % (11.0-15.5)
[2023-12-22 15:30] LABS: CREATININE 0.7 mg/dL (0.5-1.0); POTASSIUM 3.8 mmol/L (3.5-5.1)
[2023-12-22] MEDS ORDERED: ONDA-243 PO (15:57)
[2023-12-22] MEDS ORDERED: CEPH500B PO (15:57)
[2023-12-22 16:11] VITALS: BP 168/84; PULSE 67; RESP 17; O2SAT 98
== END 2023-12-22 16:17 | disposition home or self-care (01) ==
LOC: EDH 14:45
DX: N39.0 Urinary tract infection, site not specified (principal); I10 Essential (primary) hypertension; E11.9 Type 2 diabetes mellitus without complications; E78.00 Pure hypercholesterolemia, unspecified; Z79.84 Long term (current) use of oral hypoglycemic drugs; Z79.899 Other long term (current) drug therapy; Z90.49 Acquired absence of other specified parts of digestive tract; Z90.710 Acquired absence of both cervix and uterus; Z98.890 Other specified postprocedural states
CPT/HCPCS: 36415; 80048; 81001; 85025; 87086

== ENCOUNTER → 2024-03-05 | Outpatient (CLI) | payer OTHER ==
[~2024-03-05] MED LIST changes: +CEPH500B PO; +ONDA-243 PO
--- NOTE | 2024-03-05 09:47 | HMCIMG ---
US ABDOMEN CMP W DOPPLERS REASON: CIRRHOSIS OF THE LIVER COMPARISON: None FINDINGS: There is inhomogeneous liver parenchyma consistent with the history of cirrhosis. There are no focal mass lesions. The liver is not enlarged.The gallbladder is surgically absent. Spleen is enlarged at 17.2 cm. There is no visible ascites. Kidneys appear normal in size and appearance. There is no evidence of mass, stone or hydronephrosis. Common duct is normal at 3 mm. Aorta and inferior vena cava appear normal. The pancreas appears normal as well. Vascular Doppler evaluation was performed with spectral analysis and color flow imaging. Portal vein diameter is 9 mm. There is normal direction of flow within no evidence of portal vein thrombosis. Portal vein velocity is 8 cm/s. Hepatic veins are patent as is the hepatic artery. Resistive index is 0.76. Splenic vein is patent with a normal direction of flow at 17 cm/s and no evidence of thrombosis. IMPRESSION: 1. Inhomogeneous liver with splenomegaly consistent with the clinical impression of cirrhosis. 2. Normal hepatic vascular Doppler evaluation as described, no evidence of portal or splenic vein thrombosis.
== END | disposition home or self-care (01) ==
LOC: RAH 07:26
PROVIDERS: ATTEND Internal Medicine Gastroenterology
DX: R16.1 Splenomegaly, not elsewhere classified (principal); K74.69 Other cirrhosis of liver; Z90.49 Acquired absence of other specified parts of digestive tract
CPT/HCPCS: 76700; 93975

== ENCOUNTER → 2024-03-30 | Outpatient (CLI) | payer OTHER ==
[2024-03-30 10:50] LABS: THYROID STIMULATING HORMONE 2.22 uIU/mL (0.36-3.74)
== END | disposition home or self-care (01) ==
LOC: LAB 09:29
PROVIDERS: ATTEND Family Medicine
DX: E11.65 Type 2 diabetes mellitus with hyperglycemia (principal); E78.00 Pure hypercholesterolemia, unspecified
CPT/HCPCS: 36415; 80061; 82043; 82570; 83036; 84443

== ENCOUNTER → 2024-04-03 | Outpatient (CLI) | payer OTHER ==
--- NOTE | 2024-04-04 09:40 | HMCIMG ---
SCREENING MAMMOGRAM REASON: Annual Exam COMPARISON: 08/30/2022 TECHNIQUE: CC and MLO views of the bilateral breasts were performed.CAD was performed as well. FINDINGS: Parenchymal density: There are scattered areas of fibroglandular density. There are no focal mass lesions. There are no pathologic appearing calcifications. There is no evidence of architectural distortion or skin thickening. IMPRESSION: Normal screening mammogram The patient was entered into a reminder system with a target due date for their next mammogram. BI-RADS CATEGORY 1: NEGATIVE Recommend monthly self breast exam as well as annual clinical examination. A negative x-ray should not delay biopsy if a dominant or clinically suspicious mass is present, since 8-10% of cancers are not identified by mammography. Dense breasts particularly, may obscure an underlying neoplasm. Some of these may be detected clinically and therefore, clinical examination is an essential part of breast evaluation.
== END | disposition home or self-care (01) ==
LOC: RAH 13:40
PROVIDERS: ATTEND Family Medicine
DX: Z12.31 Encounter for screening mammogram for malignant neoplasm of breast (principal); R92.323 Mammographic fibroglandular density, bilateral breasts
CPT/HCPCS: 77067

== ENCOUNTER 2024-06-05 10:46 | Day surgery (SDC) | payer OTHER ==
[2024-06-05] VITALS (10 sets, daily range): BP systolic 113–135; BP diastolic 64–71; PULSE 49–57; RESP 15–19; TEMP 97.4–208.4
[~2024-06-05] VITALS: Ht 167.6 cm; Wt 72.6 kg
[2024-06-05 11:41] LABS: BASOPHILS # (AUTO) 0.02 K/uL (0.00-0.20); BASOPHILS % (AUTO) 0.5 % (0.0-5.0); EOSINOPHILS # (AUTO) 0.03 K/uL (0.00-0.70); EOSINOPHILS % (AUTO) 0.8 % (0.0-8.0); HEMATOCRIT 42.8 % (36-48); IMMATURE GRANULOCYTE ABSOLUTE 0.01 K/uL (0-1); LYMPHOCYTES # (AUTO) 1.1 K/uL (1.0-4.8); LYMPHOCYTES % (AUTO) 30.5 % (21.0-51.0); MEAN CORPUSCULAR HEMOGLOBIN 29.7 pg (27.0-33.0); MEAN CORPUSCULAR HGB CONC 34.6 g/dL (32.0-36.0); MEAN CORPUSCULAR VOLUME 85.8 fL (79-99); MONOCYTES # (AUTO) 0.2 K/uL (0.1-1.0); MONOCYTES % (AUTO) 5.9 % (3.0-13.0); NEUTROPHILS # (AUTO) 2.3 K/uL (1.8-7.7); PLATELET COUNT (AUTO) 92 K/uL (130-400); RED BLOOD CELL COUNT(AUTO) 4.99 MIL/uL (4.00-5.50); RED CELL DISTRIBUTION WIDTH 13.3 % (11.0-15.5); WHITE BLOOD COUNT (AUTO) 3.7 K/uL (4.8-10.8)
[2024-06-05 11:56] LABS: ALBUMIN 4.1 g/dL (3.5-5.0); BILIRUBIN,TOTAL 2.5 mg/dL (0.2-1.0); CREATININE 0.6 mg/dL (0.5-1.0); POTASSIUM 4.3 mmol/L (3.5-5.1); TOTAL PROTEIN, SERUM 7.5 g/dL (6.0-8.3)
[2024-06-05] MEDS ORDERED: 0.9%NACL 1000ML 1,000 ML IV ONE (12:03)
[2024-06-05 12:35] LABS: INR 1.07 (0.85-1.15); PROTHROMBIN TIME 11.9 SEC (9.6-11.6)
[2024-06-05 12:37] LABS: PARTIAL THROMBOPLASTIN TIME 26.9 SEC (26.3-35.5)
[2024-06-05] MEDS ORDERED: proPOFol 10 MG/ML 20ML VIAL IV ONE (13:03)
[2024-06-05] MEDS ORDERED: LIDOCAINE PF 100MG/5ML (2%) SYRINGE 5ML ONE (13:03)
== END 2024-06-05 14:17 | disposition home or self-care (01) ==
LOC: ENDO 10:46 → DAH 10:48 → ENDO 14:17
PROVIDERS: ATTEND Internal Medicine Gastroenterology
DX: K74.60 Unspecified cirrhosis of liver (principal); I85.10 Secondary esophageal varices without bleeding; K76.6 Portal hypertension; K31.89 Other diseases of stomach and duodenum; K29.00 Acute gastritis without bleeding; I10 Essential (primary) hypertension; E78.5 Hyperlipidemia, unspecified; E11.9 Type 2 diabetes mellitus without complications; Z88.8 Allergy status to other drugs, medicaments and biological substances; Z90.710 Acquired absence of both cervix and uterus; Z90.49 Acquired absence of other specified parts of digestive tract; Z98.890 Other specified postprocedural states; Z79.899 Other long term (current) drug therapy
CPT/HCPCS: 43244; 80053; 85025; 85610; 85730; 36415; J7030 ×2; J2003; J2704; A4620; A4215 ×2; A4223; A7002; A4222; A4221; A4663; A4606; J3490

== ENCOUNTER 2024-08-26 20:19 | Emergency (ER) | payer OTHER ==
[~2024-08-26] VITALS: Ht 167.6 cm; Wt 70.3 kg
[~2024-08-26 20:19] MED LIST changes: -CEPH500B PO; -ONDA-243 PO
--- NOTE | 2024-08-26 20:47 | ERN ---
ED Note History of Present Illness Stated Complaint: ABD PAIN Time Seen by MD: 20:23 Dictation: PATIENT IS A 58-YEAR-OLD FEMALE HERE WITH COMPLAINTS OF BURNING EPIGASTRIC AND LEFT UPPER QUADRANT PAIN WITH NAUSEA ONSET YESTERDAY. SHE DENIES VOMITING, NO CHEST PAIN NO BACK PAIN NO SOB. STATES SHE DOES HAVE A HISTORY OF CHRONIC PANCREATITIS AND THINKS IT MIGHT BE BACK. SHE STATES SHE ATE SOUP THIS MORNING THAT MADE THE PAIN WORSE AND SHE SEE YOUR FOR FURTHER EVALUATION AND TREATMENT. Allergies: Coded Allergies: sulfamethoxazole (Unverified Allergy, Unknown, HIVES, COUGH, SOB, 09/18/19) Home Meds Reported Medications Metoprolol Tartrate (Metoprolol Tartrate) 25 Mg Tablet, 25 MG PO BID, TAB 03/01/23 Atorvastatin Calcium (LIPITOR) 10 Mg Tab, 10 MG PO HS, TAB 04/30/22 Metformin HCl (Metformin HCl) 500 Mg Tablet, 500 MG PO BID, TAB 10/24/20 Past Medical History Past Medical History: Diabetes-Type II, High Cholesterol, Hypertension, Liver Disease, Pancreatitis, UTI Additional Past Medical Hx: CIRRHOSIS; OSTEOARTHRITIS Surgical History: Hysterectomy, Cholecystectomy Surgical History Other: BLADDER LIFT, UMBILICAL HERNIA REPAIR Social History: Negative History: Not Applicable RN Note Reviewed/Agreed w/PFSH: Yes Review of System Dictation CONSTITUTIONAL: NEGATIVE EXCEPT FOR HPI HEAD/FACE: NEGATIVE EXCEPT FOR HPI EENT: NEGATIVE EXCEPT FOR HPI RESPIRATORY: NEGATIVE EXCEPT FOR HPI GASTROINTESTINAL/ABDOMINAL: NEGATIVE EXCEPT FOR HPI EPIGASTRIC AND LEFT UPPER QUADRANT PAIN WITH NAUSEA BURNING GENITOURINARY: NEGATIVE EXCEPT FOR HPI MUSCULOSKELETAL: NEGATIVE EXCEPT FOR HPI INTEGUMENTARY: NEGATIVE EXCEPT FOR HPI NEUROLOGICAL/PSYCH: NEGATIVE EXCEPT FOR HPI HEMATOLOGIC/LYMPHATIC: NEGATIVE EXCEPT FOR HPI ALL SYSTEMS NEGATIVE, EXCEPT NOTED ABOVE. 13 POINT REVIEW OF SYSTEMS ASSESSED AND ALL NEGATIVE EXCEPT FOR ABOVE. Initial Vital Sign VS Vital Signs Date Time Temp Pulse Resp B/P (MAP) Pulse Ox O2 Delivery O2 Flow Rate FiO2 08/26/24 20:48 100.0 96 18 168/98 100 Room Air 0 08/27/24 00:52 21 Physical Exam Dictation VITAL SIGNS REVIEWED GENERAL APPEARANCE: ALERT, ORIENTED X 3, MONITOR ACUTE DISTRESS, WELL DEVELOPED, NOURISHED. HEAD AND FACE: NON-TRAUMATIC. EYES: PERRL, PINK CONJUNCTIVAS, EYELID NO TRAUMA, ANTERIOR CHAMBER WITH ARCUS SENILIS. EARS: PINNAS INTACT AND NO SIGNS OF TRAUMA OR ERYTHEMA EAR CANALS CLEAR AND NO DISCHARGE TM NO ERYTHEMA NOSE: NO DISCHARGE, NO BLEEDING. OROPHARYNX: MOUTH NORMAL, TONGUE PINK, PHARYNX CLEAR,NO ERYTHEMA, TONSILS NO EXUDATES, NO ABSCESSES NOTED, MUCOUS MEMBRANE MOIST NECK: SUPPLE, NON-TENDER, NO THYROMEGALY, NO MASSES, NO JVD, NO BRUITS BREAST:DEFERRED CHEST:NO TENDERNESS, NO CREPITUS, NO PARADOXICAL MOVEMENT, NO RETRACTIONS LUNGS:CLEAR, WELL-VENTILATED, SYMMETRIC, NO RALES, NO WHEEZING, NO RHONCHI, NO STRIDOR, GOOD BREATH SOUNDS BILATERALLY HEART: REGULAR RATE, REGULAR RHYTHM, NO MURMUR, NO GALLOPS VASCULAR: NO PERIPHERAL EDEMA, ABDOMEN: SOFT, POSITIVE BOWEL SOUNDS, NONDISTENDED, NO GUARDING, N EPIGASTRIC AND LEFT UPPER QUADRANT PAIN TENDERNESS WITH PALPATION. RECTAL: DEFERRED GENITAL: DEFERRED NEUROLOGICAL: NORMAL SPEECH, MOTOR FUNCTION INTACT, SENSORY FUNCTION INTACT MUSCULOSKELETAL: NECK NONTENDER, FULL RANGE OF MOTION, BACK NONTENDER, FULL RANGE OF MOTION, EXTREMITIES: NONTENDER, FULL RANGE OF MOTION SKIN: COLOR PINK, DRY, NO TURGOR, NO RASH, NO LACERATIONS, NO ABRASIONS, NO CONTUSIONS. LYMPHATIC: DEFERRED Results (Laboratory/Radiology) Laboratory/Radiology Laboratory Tests Test 08/26/24 20:53 08/26/24 21:00 White Blood Count 3.7 K/uL (4.8-10.8) L Red Blood Count 5.25 MIL/uL (4.00-5.50) Hemoglobin 15.6 g/dL (12.0-16.0) Hematocrit 45.5 % (36-48) Mean Corpuscular Volume 86.7 fL (79-99) Mean Corpuscular Hemoglobin 29.7 pg (27.0-33.0) Mean Corpuscular Hemoglobin Concent 34.3 g/dL (32.0-36.0) Red Cell Distribution Width 12.7 % (11.0-15.5) Platelet Count 73 K/uL (130-400) L Mean Platelet Volume 10.3 fL (7.5-10.5) Immature Granulocyte % (Auto) 0.3 % (0-1) Neutrophils (%) (Auto) 62.3 % (40.0-77.0) Lymphocytes (%) (Auto) 31.0 % (21.0-51.0) Monocytes (%) (Auto) 5.4 % (3.0-13.0) Eosinophils (%) (Auto) 0.5 % (0.0-8.0) Basophils (%) (Auto) 0.5 % (0.0-5.0) Neutrophils # (Auto) 2.3 K/uL (1.8-7.7) Lymphocytes # (Auto) 1.2 K/uL (1.0-4.8) Monocytes # (Auto) 0.2 K/uL (0.1-1.0) Eosinophils # (Auto) 0.02 K/uL (0.00-0.70) Basophils # (Auto) 0.02 K/uL (0.00-0.20) Absolute Immature Granulocyte (auto 0.01 K/uL (0-1) Nucleated Red Blood Cells 0.0 % (0.0-0.19) Sodium Level 142 mmol/L (136-145) Potassium Level 3.6 mmol/L (3.5-5.1) Chloride Level 104 mmol/L (101-111) Carbon Dioxide Level 29 mmol/L (21-32) Blood Urea Nitrogen 12 mg/dL (7-18) Creatinine 0.9 mg/dL (0.5-1.0) Glomerular Filtration Rate Calc 75 mL/min (>90) Random Glucose 220 mg/dL (70-105) H Total Calcium 9.2 mg/dL (8.5-10.1) Troponin I High Sensitivity 5 ng/L (4-50) Triglycerides Level 188 mg/dL (30-200) Lipase 68 U/L (16-77) Urine Color YELLOW (YELLOW) Urine Appearance CLOUDY (CLEAR) H Urine pH 6.0 (5.0-8.0) Urine Specific [place] 1.027 (1.001-1.031) Urine Protein 20 mg/dL (NEGATIVE) H Urine Glucose (UA) >=1000 mg/dL (NEGATIVE) H Urine Ketones NEGATIVE mg/dL (NEGATIVE) Urine Occult Blood NEGATIVE (NEGATIVE) Urine Nitrate NEGATIVE (NEGATIVE) Urine Bilirubin NEGATIVE mg/dL (NEGATIVE) Urine Urobilinogen 3 mg/dL (0.2-1.0) H Urine Leukocyte Esterase 250 Rodolfo/uL (NEGATIVE) H Urine RBC 2-5 /HPF (0-1) H Urine WBC 11-25 /HPF (0-1) H Urine Squamous Epithelial Cells MOD /HPF (0-2) Urine Bacteria RARE /HPF (None Seen) Labs Reviewed?: Yes ED Course ED Course Orders Procedure Category Date Status Time Cbc With Differential LAB 08/26/24 Complete 20:44 Troponin I High LAB 08/26/24 Complete Sensitivity 20:44 Urinalysis Profile LAB 08/26/24 Complete 20:44 12 Lead Ekg Tracing- EKG 08/26/24 Complete Technical 20:44 0.9%Nacl 1000ml (Ns PHA 08/26/24 Complete 1000ml) 21:00 Morphine 2mg Syg PHA 08/26/24 Complete (Morphine 2mg Syg) 21:00 Ondansetron 4mg Inj PHA 08/26/24 Complete (Zofran 4mg Inj) 21:00 Famotidine 20mg Vial PHA 08/26/24 Complete (Pepcid 20mg Vial) 21:00 Lipase LAB 08/26/24 Complete 20:44 Basic Metabolic Panel LAB 08/26/24 Complete 20:44 Triglycerides LAB 08/26/24 Complete 20:47 Culture Urine CAMMIE 08/26/24 In Process 21:00 Ceftriaxone 1g Vial PHA 08/27/24 Logged (Rocephine 1g Inj) 01:30 Ceftriaxone 1g Vial PHA 08/27/24 Complete (Rocephine 1g Inj) 01:20 Current Medications Medications (Trade) Dose Ordered Sig/Rolf Route PRN Reason Start Time Stop Time Status Last Admin Dose Admin Ceftriaxone Sodium (ROCEphine 1G INJ) 1 gm ONCE ONCE IVP 08/27/24 01:30 08/27/24 01:31 UNV Ceftriaxone Sodium (ROCEphine 1G INJ) 1 gm STK-MED ONCE .ROUTE 08/27/24 01:20 08/27/24 01:24 DC Famotidine (Pepcid 20mg Vial) 20 mg ONCE ONCE IV 08/26/24 21:00 08/26/24 21:01 DC 08/27/24 00:51 Morphine Sulfate (morPHINE 2MG SYG) 2 mg ONCE ONCE IVP 08/26/24 21:00 08/26/24 21:01 DC 08/27/24 00:51 Ondansetron HCl (zoFRAN 4MG INJ) 4 mg ONCE ONCE IVP 08/26/24 21:00 08/26/24 21:01 DC 08/27/24 00:51 Sodium Chloride 1,000 ml @ 0 mls/hr ONCE ONCE IV 08/26/24 21:00 08/26/24 21:01 DC 08/27/24 00:51 Vital Signs Date Time Temp Pulse Resp B/P (MAP) Pulse Ox O2 Delivery O2 Flow Rate FiO2 08/27/24 00:52 98.2 82 18 132/79 97 Room Air* 0 21 08/26/24 20:48 100.0 96 18 168/98 100 Room Air 0 0130/patient made aware that she has a negative cardiac workup. Additionally she has a history of pancreatitis however lipase and triglycerides are normal blood sugar is greater than 220 and She has a UTI with cystitis. States she did not take her metformin before she came in because she was nauseated. Discharged home to follow up with her primary care doctor tomorrow Medical Decision Making MDM MDM: Differential diagnosis: Has/AMI/acute pancreatitis/uncontrolled diabetes/UTI/electrolyte imbalance/dehydration/ACS Rationale: Tests considered and ordered secondary to shared decision making include: EKG/labs Previous outside records reviewed: Old ER visits. Risk of complication and/or morbidity or mortality of patient management: None Medications-Per medication reconciliation Need for hospitalization: Patient does not meet criteria for hospitalization. None Need for emergency major/minor surgery: No There are no social concerns with this patient. Prescription drug management nitrofurantoin/omeprazole/Carafate Prescriptions will include symptomatic care Patient's prior external medical records from other ER visits were reviewed by me as indicated. Prior testing and results from previous visits were reviewed. Prior tests were taken into account with medical decision making and resource utilization, independent historian/historians were used to obtain complete medical history. I independently interpreted the test that were performed, results were reviewed by me and considered findings on radiology if ordered. Medical management and examination interpretation discussions were had by me with other qualified healthcare professionals as indicated for the patient's care. DX & DISP Disposition: Discharge Departure Impression: Primary Impression: Acute gastritis Additional Impressions: Uncontrolled diabetes mellitus, Acute cystitis with hematuria, Nausea Condition: Stable Scripts Ondansetron (Ondansetron Odt) 4 Mg Tab.rapdis 4 MG PO Q6HPRN PRN for nausea, #16 TAB 0 Refills Prov: MALINDA GARCIA ARCHITECTURE CONSULTANT 08/27/24 Omeprazole (Omeprazole) 40 Mg Capsule. 1 CAP PO DAILY for 30 Days, #30 CAP 0 Refills Prov: MALINDA GARCIA NP 08/27/24 Sucralfate (Carafate) 1 Gram Tablet 1 GM PO ACHS for 7 Days, #28 TAB Prov: MALINDA GARCIA NP 08/27/24 Nitrofurantoin Macrocrystal (Nitrofurantoin) 100 Mg Capsule 1 CAP PO BID for 7 Days, #14 CAP 0 Refills Prov: MALINDA GARCIA NP 08/27/24 Additional Instructions: Follow-up with primary care provider in 1 to 2 days. Take medications as directed here in the emergency room. Okay to continue home medications unless otherwise discussed during your visit in the emergency room today. Return to your nearest emergency room if symptoms worsen or if there is no improvement. Call 911 if you need immediate assistance. Take Tylenol or Motrin [id number] as needed and if no contraindications are present. Increase oral hydration. A wound culture or urine culture was ordered here in the emergency room department please follow-up with primary care provider and advise them to get repeat ports from our facility. If you had any Pipe wrap/splints t hat were applied here, please do not remove them until you see your primary care or specialty. Follow a bland diet with water for fluids only. Take antibiotic as directed for your urinary tract infection until gone. Take omeprazole and Carafate as direc roxy for your gastritis. See your primary care doctor tomorrow or the next day for follow up and management. Referrals: BENSON KRISHNAN MD (PCP) Time of Disposition: 01:34 I have reviewed the case, and I agree with, Diagnosis and Plan MALINDA GARCIA NP August 26, 2024 20:47
--- NOTE | 2024-08-26 20:58 | EKG ---
[facility] Test Date: 2024-08-26 Test Time: 20:55:24 Pat Name: NILESH TORRES Department: ED Room: Gender: F Game Agent: [id number] Requested By: MALINDA GARCIA Order Number: [id number] Reading MD: Uri Diop Measurements Intervals [place] Rate: 95 P: 40 CA: 163 QRS: -24 QRSD: 81 T: 15 QT: 332 QTc: 418 Interpretive Statements Sinus rhythm Low voltage, extremity and precordial leads Compared to ECG 12/05/2022 11:21:24 No significant changes Electronically Signed On 08-27-2024 07:18:59 CDT by Uri Diop Please click the below link to view image of tracing.
[2024-08-26 20:59] LABS: BASOPHILS # (AUTO) 0.02 K/uL (0.00-0.20); BASOPHILS % (AUTO) 0.5 % (0.0-5.0); EOSINOPHILS # (AUTO) 0.02 K/uL (0.00-0.70); EOSINOPHILS % (AUTO) 0.5 % (0.0-8.0); HEMATOCRIT 45.5 % (36-48); IMMATURE GRANULOCYTE ABSOLUTE 0.01 K/uL (0-1); LYMPHOCYTES # (AUTO) 1.2 K/uL (1.0-4.8); MEAN CORPUSCULAR HEMOGLOBIN 29.7 pg (27.0-33.0); MEAN CORPUSCULAR HGB CONC 34.3 g/dL (32.0-36.0); MEAN CORPUSCULAR VOLUME 86.7 fL (79-99); MONOCYTES # (AUTO) 0.2 K/uL (0.1-1.0); MONOCYTES % (AUTO) 5.4 % (3.0-13.0); NEUTROPHILS # (AUTO) 2.3 K/uL (1.8-7.7); NEUTROPHILS % (AUTO) 62.3 % (40.0-77.0); PLATELET COUNT (AUTO) 73 K/uL (130-400); RED BLOOD CELL COUNT(AUTO) 5.25 MIL/uL (4.00-5.50); RED CELL DISTRIBUTION WIDTH 12.7 % (11.0-15.5); WHITE BLOOD COUNT (AUTO) 3.7 K/uL (4.8-10.8)
[2024-08-26 21:20] LABS: CREATININE 0.9 mg/dL (0.5-1.0); POTASSIUM 3.6 mmol/L (3.5-5.1)
[2024-08-26 22:39] LABS: APPEARANCE,URINE CLOUDY (CLEAR); BILIRUBIN,URINE NEGATIVE (NEGATIVE); COLOR,URINE YELLOW (YELLOW); GLUCOSE, URINE (UA) >=1000 mg/dL (NEGATIVE); KETONES,URINE NEGATIVE (NEGATIVE); LEUKOCYTE ESTERASE ,URINE 250 Leu/uL (NEGATIVE); NITRATE,URINE NEGATIVE (NEGATIVE); OCCULT BLOOD,URINE NEGATIVE (NEGATIVE); PROTEIN,URINE 20 mg/dL (NEGATIVE); UROBILINOGEN,URINE 3 mg/dL (0.2-1.0)
[2024-08-26 22:40] LABS: ADD UA MICROSCOPIC YES
[2024-08-26 22:43] LABS: BACTERIA,URINE RARE /HPF (None Seen); MUCUS,URINE RARE LPF (None Seen); SQUAMOUS EPITHELIAL CELL,UR MOD /HPF (0-2)
--- NOTE | 2024-08-27 00:23 | NUR ---
ASSUMED PT CARE AT THIS TIME
[2024-08-27] MEDS: ondanSETRON 4MG INJ IVP ONE (00:51)
[2024-08-27] MEDS: FAMOTIDINE 20MG VIAL IV ONE (00:51)
[2024-08-27] MEDS: 0.9%NACL 1000ML 1,000 ML IV ONE (00:51)
[2024-08-27] MEDS: morPHINE 2 MG SYG IVP ONE (00:51)
[2024-08-27] MEDS ORDERED: SUCR1TAB28 PO (01:35)
[2024-08-27] MEDS ORDERED: NITR100C PO (01:35)
[2024-08-27] MEDS ORDERED: ONDA-243 PO (01:35)
[2024-08-27] MEDS ORDERED: OMEP40CA21 PO (01:35)
[2024-08-27] MEDS: cefTRIAXone 1G VIAL IVP ONE (01:38)
[2024-08-27] MEDS: cefTRIAXone 1G VIAL ONE (01:42)
[2024-08-27 01:55] VITALS: BP 129/68; PULSE 78; RESP 16; TEMP 98.3; O2SAT 99
== END 2024-08-27 01:57 | disposition home or self-care (01) ==
LOC: EDH 20:19
DX: K29.00 Acute gastritis without bleeding (principal); E11.65 Type 2 diabetes mellitus with hyperglycemia; N30.01 Acute cystitis with hematuria; E78.00 Pure hypercholesterolemia, unspecified; I10 Essential (primary) hypertension; R11.0 Nausea; M19.90 Unspecified osteoarthritis, unspecified site; Z79.84 Long term (current) use of oral hypoglycemic drugs; Z79.899 Other long term (current) drug therapy; Z88.2 Allergy status to sulfonamides; Z90.49 Acquired absence of other specified parts of digestive tract; Z90.710 Acquired absence of both cervix and uterus
CPT/HCPCS: 99284; 84478; 84484; 80048; 83690; 85025; 87086; 81001; 36415; 93005; 96374; 96375; 96361; J3490; J2270; J7030 ×2; J0696; J2405

== ENCOUNTER → 2024-08-30 | Outpatient (CLI) | payer OTHER ==
[~2024-08-30] MED LIST changes: +NITR100C PO; +OMEP40CA21 PO; +ONDA-243 PO; +SUCR1TAB28 PO
== END | disposition home or self-care (01) ==
LOC: LAB 10:31
PROVIDERS: ATTEND Internal Medicine Gastroenterology
DX: R19.7 Diarrhea, unspecified (principal)
CPT/HCPCS: 87507

== ENCOUNTER 2024-09-11 10:04 | Day surgery (SDC) | payer OTHER ==
[2024-09-11] VITALS (14 sets, daily range): BP systolic 121–146; BP diastolic 67–80; PULSE 56–93; RESP 15–17; TEMP 96.9–97.4
[~2024-09-11] VITALS: Ht 167.6 cm; Wt 70.3 kg
[2024-09-11] MEDS ORDERED: HYDR200T75 PO (10:41)
[2024-09-11] MEDS: 0.9%NACL 1000ML 1,000 ML IV ONE (11:25)
[2024-09-11] MEDS ORDERED: proPOFol 10 MG/ML 20ML VIAL IV ONE ×2 (12:20→13:58)
[2024-09-11] MEDS ORDERED: 0.9%NACL 1000ML 1,000 ML IV ONE (13:08)
== END 2024-09-11 16:05 | disposition home or self-care (01) ==
LOC: DAH 10:04 → ENDO 10:04
PROVIDERS: ATTEND Internal Medicine Gastroenterology
DX: R19.7 Diarrhea, unspecified (principal); K63.89 Other specified diseases of intestine; K64.0 First degree hemorrhoids; K57.30 Diverticulosis of large intestine without perforation or abscess without bleeding; E11.9 Type 2 diabetes mellitus without complications; I10 Essential (primary) hypertension; D69.6 Thrombocytopenia, unspecified; R10.12 Left upper quadrant pain; R10.13 Epigastric pain; R14.0 Abdominal distension (gaseous); E78.5 Hyperlipidemia, unspecified; K74.60 Unspecified cirrhosis of liver; Z98.890 Other specified postprocedural states; Z86.16 Personal history of COVID-19; Z79.899 Other long term (current) drug therapy; Z79.84 Long term (current) use of oral hypoglycemic drugs; Z90.49 Acquired absence of other specified parts of digestive tract; Z90.710 Acquired absence of both cervix and uterus; Z83.3 Family history of diabetes mellitus; Z83.438 Family history of other disorder of lipoprotein metabolism and other lipidemia; Z82.49 Family history of ischemic heart disease and other diseases of the circulatory system; Z88.8 Allergy status to other drugs, medicaments and biological substances
CPT/HCPCS: 45380; 82948 ×2; 88305; J7030 ×2; J2704 ×2; A4620; A4215 ×2; A4223; A4222; A4221; A4663; A4606; J3490

== ENCOUNTER → 2024-09-13 | Outpatient (CLI) | payer OTHER ==
[~2024-09-13] MED LIST changes: +HYDR200T75 PO; -NITR100C PO; -ONDA-243 PO; -SUCR1TAB28 PO
--- NOTE | 2024-09-13 09:55 | HMCIMG ---
US ABDOMINAL COMPLETE HISTORY: Epigastric pain COMPARISON: 03/05/2024 TECHNIQUE: Multiple transverse and longitudinal ultrasound images of the abdomen were obtained. FINDINGS: Abdominal aorta and inferior vena cava are unremarkable. The visualized portion of the pancreas is within normal limits. Liver measured 13 cm. Liver is echogenic consistent with liver parenchymal disease. Gallbladder has been removed. Common duct measures 4 mm. Both kidneys are seen. Right kidney measures 10.1 x 5.1 x 4.2 cm. Left kidney measures 10.6 x 3.7 x 4.8 cm. No hydronephrosis is seen of the both kidneys. Spleen is enlarged measuring 20 cm. The spleen is grossly unremarkable. IMPRESSION: 1. Post cholecystectomy changes are seen. No ductal dilatation is seen. 2. No hydronephrosis is seen.
== END | disposition home or self-care (01) ==
LOC: RAH 07:29
PROVIDERS: ATTEND Internal Medicine Gastroenterology
DX: R16.1 Splenomegaly, not elsewhere classified (principal); R14.0 Abdominal distension (gaseous); R10.13 Epigastric pain; R10.12 Left upper quadrant pain; Z90.49 Acquired absence of other specified parts of digestive tract; Z98.890 Other specified postprocedural states
CPT/HCPCS: 76700

== ENCOUNTER → 2024-10-08 | Outpatient (CLI) | payer OTHER ==
--- NOTE | 2024-10-08 10:44 | HMCIMG ---
US ABDOMINAL COMPLETE HISTORY: Epigastric pain COMPARISON: Ultrasound from 09/13/2024 TECHNIQUE: Multiple transverse and longitudinal ultrasound images of the abdomen were obtained. FINDINGS: Abdominal aorta and inferior vena cava are unremarkable. The visualized portion of the pancreas is within normal limits. Liver is echogenic consistent with liver parenchymal disease. Liver measured 12.1 cm. Gallbladder has been removed. Common duct measures 6 mm. No evidence of gallbladder wall thickening is seen. Both kidneys are seen. Right kidney measures 10.3 x 5.5 x 5 cm. Left kidney measures 10.5 x 3.8 x 5.5 cm. No hydronephrosis is seen of the both kidneys. Spleen is enlarged measuring 20 cm. The spleen is grossly unremarkable. IMPRESSION: 1. Gallbladder has been removed. No ductal dilatation is seen. Enlarged spleen. 2. No hydronephrosis is seen.
== END | disposition home or self-care (01) ==
LOC: RAH 08:30
PROVIDERS: ATTEND Internal Medicine Gastroenterology
DX: R16.1 Splenomegaly, not elsewhere classified (principal); K74.60 Unspecified cirrhosis of liver; Z90.49 Acquired absence of other specified parts of digestive tract
CPT/HCPCS: 76700

== ENCOUNTER → 2024-10-12 | Outpatient (CLI) | payer OTHER ==
[2024-10-12 08:40] LABS: BASOPHILS # (AUTO) 0.01 K/uL (0.00-0.20); BASOPHILS % (AUTO) 0.3 % (0.0-5.0); EOSINOPHILS # (AUTO) 0.04 K/uL (0.00-0.70); EOSINOPHILS % (AUTO) 1.1 % (0.0-8.0); HEMATOCRIT 44.2 % (36-48); IMMATURE GRANULOCYTE ABSOLUTE 0.01 K/uL (0-1); LYMPHOCYTES # (AUTO) 1.2 K/uL (1.0-4.8); LYMPHOCYTES % (AUTO) 34.5 % (21.0-51.0); MEAN CORPUSCULAR HEMOGLOBIN 29.6 pg (27.0-33.0); MEAN CORPUSCULAR HGB CONC 34.8 g/dL (32.0-36.0); MEAN CORPUSCULAR VOLUME 84.8 fL (79-99); MONOCYTES # (AUTO) 0.3 K/uL (0.1-1.0); MONOCYTES % (AUTO) 7.1 % (3.0-13.0); NEUTROPHILS % (AUTO) 56.7 % (40.0-77.0); PLATELET COUNT (AUTO) 99 K/uL (130-400); RED BLOOD CELL COUNT(AUTO) 5.21 MIL/uL (4.00-5.50); RED CELL DISTRIBUTION WIDTH 13.5 % (11.0-15.5); WHITE BLOOD COUNT (AUTO) 3.5 K/uL (4.8-10.8)
[2024-10-12 08:53] LABS: ALANINE AMINOTRANSFERASE 35 U/L (12-78); ALBUMIN 4.4 g/dL (3.5-5.0); AMMONIA < 10 umol/L (11-32); ASPARTATE AMINOTRANSFERASE 29 U/L (10-37); BILIRUBIN,TOTAL 1.9 mg/dL (0.2-1.0); CARBON DIOXIDE 30 mmol/L (21-32); CHLORIDE 107 mmol/L (101-111); CREATININE 0.7 mg/dL (0.5-1.0); GLOMERULAR FILTR. RATE CALC 101 mL/min (>90); GLUCOSE,RANDOM 155 mg/dL (70-105); POTASSIUM 4.3 mmol/L (3.5-5.1); SODIUM SERUM 144 mmol/L (136-145); UREA NITROGEN, BLOOD 9 mg/dL (7-18)
[2024-10-12 09:03] LABS: INR 1.14 (0.85-1.15); PROTHROMBIN TIME 11.9 SEC (9.6-11.6)
[2024-10-12 09:04] LABS: PARTIAL THROMBOPLASTIN TIME 28.3 SEC (26.3-35.5)
[2024-10-12 09:46] LABS: ERYTHROCYTE SEDIMENTATION RATE 5 MM/HR (0-30)
== END | disposition home or self-care (01) ==
LOC: LAB 07:52
PROVIDERS: ATTEND Internal Medicine Gastroenterology
DX: K74.60 Unspecified cirrhosis of liver (principal); D69.6 Thrombocytopenia, unspecified; M32.19 Other organ or system involvement in systemic lupus erythematosus; Z79.899 Other long term (current) drug therapy
CPT/HCPCS: 36415; 80053; 82105; 82140; 85025; 85610; 85651; 85730; 86140

== ENCOUNTER → 2025-02-04 | Outpatient (CLI) | payer OTHER ==
[~2025-02-04] MED LIST changes: +EMPA25TA PO; +LOPE2CAP PO
[2025-02-04 11:39] LABS: IMMATURE GRANULOCYTE ABSOLUTE 0.01 K/uL (0-1); NUCLEATED RED BLOOD CELLS 0.0 % (0.0-0.19); PLATELET COUNT (AUTO) 88 K/uL (130-400); RED BLOOD CELL COUNT(AUTO) 5.25 MIL/uL (4.00-5.50); RED CELL DISTRIBUTION WIDTH 13.4 % (11.0-15.5); WHITE BLOOD COUNT (AUTO) 4.1 K/uL (4.8-10.8)
[2025-02-04 11:53] LABS: INR 1.15 (0.85-1.15)
== END | disposition home or self-care (01) ==
LOC: LAB 10:51
PROVIDERS: ATTEND Internal Medicine Gastroenterology
DX: K74.60 Unspecified cirrhosis of liver (principal); R19.7 Diarrhea, unspecified
CPT/HCPCS: 36415; 85025; 85610; 85730; 87507

== ENCOUNTER 2025-02-05 10:23 | Day surgery (SDC) | payer OTHER ==
[2025-02-05] VITALS (10 sets, daily range): BP systolic 98–133; BP diastolic 55–78; PULSE 62–72; RESP 14–18; TEMP 97.3–97.7
[~2025-02-05] VITALS: Ht 167.6 cm; Wt 68.0 kg
[~2025-02-05 10:23] MED LIST changes: -EMPA25TA PO; -LOPE2CAP PO
[2025-02-05] MEDS ORDERED: 0.9%NACL 1000ML 1,000 ML IV ONE (11:42)
[2025-02-05] MEDS ORDERED: LOPE2CAP PO (12:06)
[2025-02-05] MEDS ORDERED: EMPA25TA PO (12:06)
[2025-02-05] MEDS ORDERED: METO25TA6 PO (12:06)
[2025-02-05 12:13] LABS: INR 1.19 (0.85-1.15)
[2025-02-05] MEDS ORDERED: LIDOCAINE PF 100MG/5ML (2%) SYRINGE 5ML ONE (12:30)
[2025-02-05] MEDS ORDERED: OMEP40CA21 PO (13:32)
--- NOTE | 2025-02-05 14:02 | NUR ---
Full and complete discharge instructions given to Patient and Family both verbally and in writing. Explained GI procedure precautions and follow up. All questions answered. PIV removed with catheter tip intact. Family at bedside appearing supportive. W/C to POV with Family to home
== END 2025-02-05 14:00 | disposition home or self-care (01) ==
LOC: DAH 10:23 → ENDO 10:23
PROVIDERS: ATTEND Internal Medicine Gastroenterology
DX: R10.13 Epigastric pain (principal); K29.51 Unspecified chronic gastritis with bleeding; K74.60 Unspecified cirrhosis of liver; D69.59 Other secondary thrombocytopenia; I85.10 Secondary esophageal varices without bleeding; E11.9 Type 2 diabetes mellitus without complications; K31.89 Other diseases of stomach and duodenum; I10 Essential (primary) hypertension; K76.6 Portal hypertension; K21.9 Gastro-esophageal reflux disease without esophagitis; E78.5 Hyperlipidemia, unspecified; R19.7 Diarrhea, unspecified; Z79.84 Long term (current) use of oral hypoglycemic drugs; Z88.8 Allergy status to other drugs, medicaments and biological substances; Z20.822 Contact with and (suspected) exposure to COVID-19; Z98.890 Other specified postprocedural states; Z90.49 Acquired absence of other specified parts of digestive tract; Z79.899 Other long term (current) drug therapy
CPT/HCPCS: 43239; 85610; 82948; 36415; 88305; 88312; J7030; J2003; J2704 ×2; A4620; A4215 ×2; A4223; A4222; A4221; A4663; A4606; J3490